=== PATIENT | male | born 1965 | race Caucasian/White ===

== ENCOUNTER 2016-12-18 16:39 | Observation (INO) | payer BC ==
[2016-12-18] MEDS ORDERED: SODIUM CHLORIDE 0.9% 1,000 ML IV STA (17:49)
[2016-12-18 18:13] LABS: Basophils % (A) 0 %; CH 32.1; CHCM 35.8; Eosinophils # (A) 0.2 k/uL (0-0.7); Eosinophils % (A) 1 %; HCT 49.9 % (39.0-53.0); HDW 2.84; HGB 17.5 gm/dL (13.0-17.5); Luc # (Auto) 0.15; Luc % (Auto) 1; Lymphocytes # (A) 2.1 k/uL (1.0-4.8); Lymphocytes % (A) 16 %; MCH 31.5 pg (25.0-35.0); MCV 89.9 fL (80.0-100.0); Mean Platelet Volume 6.4; Monocytes # (A) 0.5 k/uL (0-1.0); Monocytes % (A) 4 %; Neutrophils # (A) 9.7 k/uL (1.3-7.7); Neutrophils % (A) 77 %; RBC 5.55 m/uL (4.30-5.90); RDW 13.3 % (11.5-15.5); WBC 12.6 k/uL (3.8-10.6)
[2016-12-18 18:16] LABS: ALT 30 U/L (21-72); AST 23 U/L (17-59); Alkaline Phosphatase 111 U/L (38-126); Amylase 36 U/L (30-110); Anion Gap 12 mmol/L; Blood Urea Nitrogen 12 mg/dL (9-20); Calcium 9.4 mg/dL (8.4-10.2); Carbon Dioxide 24 mmol/L (22-30); Chloride 105 mmol/L (98-107); Glucose 86 mg/dL (74-99); Non-African American GFR(MDRD) >60 (>60 ml/min/1.73 sqM); Potassium 4.3 mmol/L (3.5-5.1); Sodium 141 mmol/L (137-145); Total Bilirubin 1.2 mg/dL (0.2-1.3)
[2016-12-18 18:31] LABS: Appearance,Urine Clear (Clear); Bilirubin,Urine Negative (Negative); Glucose,Urine (UA) Negative (Negative); Ketones,Urine Negative (Negative); Leukocyte Esterase,Urine Negative (Negative); Nitrite,Urine Negative (Negative); PH, Urine 7.5 (5.0-8.0); Protein,Urine Negative (Negative); Specific Gravity,Urine 1.013 (1.001-1.035); UA Billing (MACRO vs. MICRO) CHEM; Urobilinogen,Urine <2.0 mg/dL (<2.0)
[2016-12-18] MEDS ORDERED: RX INFO: IV CONTRAST WAS GIVEN 1 EACH MISC MISCELLANE PRN (18:34)
--- NOTE | 2016-12-18 19:09 | ED ---
Abdominal Pain HPI - General Chief Complaint: Abdominal Pain Stated Complaint: Abdominal/Side Pain Time Seen by Provider: 12/18/16 17:49 Source: patient, RN notes reviewed Mode of arrival: ambulatory Limitations: no limitations - History of Present Illness Initial Comments: This a 51-year-old male presents emergency Department with chief complaint abdominal pain. Patient states she's had some mild jumping over the last week but states that the last 24 hours she's had severe right lower quadrant abdominal pain. Patient states is very tender when he tries to walk or if he presses in the right lower quadrant. Patient denies any known fever or chills. Patient denies any change in bowel habits she's had some nausea but no vomiting. Patient denies any chest pain or shortness of breath. Patient denies any sick contacts. Patient had a prior hernia surgery but he cannot remember who his surgeon was. - Related Data Previous Rx's Medication Instructions Recorded Aspirin EC [Ecotrin] 325 mg PO DAILY #90 tablet. 12/07/14 Atorvastatin [Lipitor] 40 mg PO DAILY #90 tab 12/07/14 Clopidogrel [Plavix] 75 mg PO DAILY #90 tab 12/07/14 Metoprolol Tartrate [Lopressor] 25 mg PO BID #180 tab 12/07/14 Nitroglycerin Sl Tabs [Nitrostat] 0.4 mg SUBLINGUAL Q5M PRN #25 tab 12/07/14 Allergies Allergy/AdvReac Type Severity Reaction Status Date / Time No Known Allergies Allergy Verified 12/18/16 18:30 Review of Systems ROS Statement: Those systems with pertinent positive or pertinent negative responses have been documented in the HPI. ROS Other: All systems not noted in ROS Statement are negative. Past Medical History Past Medical History: No Reported History History of Any Multi-Drug Resistant Organisms: None Reported Past Surgical History: Heart Catheterization With Stent, Hernia Repair Past Anesthesia/Blood Transfusion Reactions: No Reported Reaction Past Psychological History: No Psychological Hx Reported Smoking Status: Current every day smoker Past Alcohol Use History: Rare Past Drug Use History: None Reported - Past Family History Father Family Medical History: AICD/Pacemaker, Congestive Heart Failure (CHF), Myocardial Infarction ([place]) Additional Family Medical History / Comment(s): Prostate CA General Exam Limitations: no limitations General appearance: alert, in no apparent distress Head exam: Present: atraumatic, normocephalic, normal inspection Respiratory exam: Present: normal lung sounds bilaterally. Absent: respiratory distress, wheezes, rales, rhonchi, stridor Cardiovascular Exam: Present: regular rate, normal rhythm, normal heart sounds. Absent: systolic murmur, diastolic murmur, rubs, gallop, clicks GI/Abdominal exam: Present: soft, tenderness (Moderate right lower quadrant tenderness), normal bowel sounds. Absent: distended, guarding, rebound, rigid Back exam: Absent: CVA tenderness (R), CVA tenderness (L) Skin exam: Present: warm, dry, intact, normal color. Absent: rash Course Vital Signs 12/18/16 12/18/16 17:12 18:56 Temperature 99 F 97.3 F L Pulse Rate 94 78 Respiratory 16 18 Rate Blood Pressure 141/82 138/74 O2 Sat by Pulse 95 96 Oximetry Medical Decision Making - Lab Data Result diagrams: 12/18/16 17:45 12/18/16 17:45 Lab Results 12/18/16 12/18/16 12/18/16 Range/Units 17:45 17:45 17:45 WBC 12.6 H (3.8-10.6) k/uL RBC 5.55 (4.30-5.90) m/uL Hgb 17.5 (13.0-17.5) gm/dL Hct 49.9 (39.0-53.0) % MCV 89.9 (80.0-100.0) fL MCH 31.5 (25.0-35.0) pg MCHC 35.0 (31.0-37.0) g/dL RDW 13.3 (11.5-15.5) % Plt Count 218 (150-450) k/uL Neutrophils % 77 % Lymphocytes % 16 % Monocytes % 4 % Eosinophils % 1 % Basophils % 0 % Neutrophils # 9.7 H (1.3-7.7) k/uL Lymphocytes # 2.1 (1.0-4.8) k/uL Monocytes # 0.5 (0-1.0) k/uL Eosinophils # 0.2 (0-0.7) k/uL Basophils # 0.0 (0-0.2) k/uL Sodium 141 (137-145) mmol/L Potassium 4.3 (3.5-5.1) mmol/L Chloride 105 (98-107) mmol/L Carbon Dioxide 24 (22-30) mmol/L Anion Gap 12 mmol/L BUN 12 (9-20) mg/dL Creatinine 0.82 (0.66-1.25) mg/dL Est GFR (MDRD) Af Amer >60 (>60 ml/min/1.73 sqM) Est GFR (MDRD) Non-Af >60 (>60 ml/min/1.73 sqM) Glucose 86 (74-99) mg/dL Calcium 9.4 (8.4-10.2) mg/dL Total Bilirubin 1.2 (0.2-1.3) mg/dL AST 23 (17-59) U/L ALT 30 (21-72) U/L Alkaline Phosphatase 111 (38-126) U/L Total Protein 7.0 (6.3-8.2) g/dL Albumin 4.3 (3.5-5.0) g/dL Amylase 36 (30-110) U/L Lipase 29 (23-300) U/L Urine Color Yellow Urine Appearance Clear (Clear) Urine pH 7.5 (5.0-8.0) Ur Specific [place] 1.013 (1.001-1.035) Urine Protein Negative (Negative) Urine Glucose (UA) Negative (Negative) Urine Ketones Negative (Negative) Urine Blood Negative (Negative) Urine Nitrate Negative (Negative) Urine Bilirubin Negative (Negative) Urine Urobilinogen <2.0 (<2.0) mg/dL Ur Leukocyte Esterase Negative (Negative) Disposition Clinical Impression: Colitis, Abdominal pain Disposition: ADMITTED IP TO THIS [facility] Condition: Stable
--- NOTE | 2016-12-18 19:15 | CT ---
EXAMINATION TYPE: CT abdomen pelvis w con DATE OF EXAM: 12/18/2016 7:05 PM COMPARISON: NONE HISTORY: Generalized abdominal and chest pain. Nausea. CT DLP: 915.30 mGycm Automated exposure control for dose reduction was used. TECHNIQUE: Helical acquisition of images was performed from the lung bases through the pelvis. CONTRAST: Performed without Oral Contrast and with IV Contrast, patient injected with 100 mL of Omnipaque 300. FINDINGS: Lung bases are clear. There is no pleural effusion. Heart size is normal. Liver spleen pancreas gallbladder appear normal. Bile ducts are not dilated. There is no adrenal mass . Kidneys show satisfactory contrast opacification. There is no hydronephrosis. Ureters are not dilat ed. There is no retroperitoneal adenopathy. There is no ascites. Bladder distends smoothly. There is no sign of a pelvic mass. There is some wall thickening involving the cecum. The appendix appears nor mal. There is no evidence of a bowel obstruction. There are multiple diverticula throughout the colon . There is atherosclerotic calcification in the abdominal aorta and its branches. IMPRESSION: NORMAL APPENDIX. THERE IS MILD WALL THICKENING INVOLVING THE CECUM THAT COULD RELATE TO FOCAL COLITIS . THERE ARE SCATTERED MULTIPLE COLONIC DIVERTICULA WITHOUT EVIDENCE OF DIVERTICULITIS.
[2016-12-18] MEDS ORDERED: NALOXONE 0.4 MG/ML 1 ML VIAL IV PRN (19:40)
[2016-12-18] MEDS ORDERED: LEVOFLOXACIN 750MG-D5W PMX 750 MG in DEXTROSE/WATER 1 150ML.BAG IVPB STA (19:41)
[2016-12-18] MEDS ORDERED: NICOTINE 21MG/24HR PATCH TRANSDERM STA (19:50)
[2016-12-18] MEDS: MORPHINE SULFATE 4 MG/ML SYRINGE IV PRN (20:42)
[2016-12-18 21:17] VITALS: BMI 26.5
[2016-12-18] MEDS: metroNIDAZOLE-NS PMX 500 MG in SALINE 1 100ML.BAG IVPB SCH (22:10)
[2016-12-18] MEDS: METOPROLOL TARTRATE 25 MG TAB PO SCH (22:10)
[2016-12-18] MEDS: SODIUM CHLORIDE 0.9% 1,000 ML IV SCH (22:14)
[2016-12-19] MEDS: MORPHINE SULFATE 4 MG/ML SYRINGE IV PRN (01:24)
[2016-12-19] MEDS: METOPROLOL TARTRATE 25 MG TAB PO SCH ×2 (08:16→19:58)
[2016-12-19] MEDS: NICOTINE 21MG/24HR PATCH TRANSDERM SCH (08:16)
[2016-12-19] MEDS: metroNIDAZOLE-NS PMX 500 MG in SALINE 1 100ML.BAG IVPB SCH ×3 (08:16→23:42)
[2016-12-19] MEDS: ATORVASTATIN 40 MG TAB PO SCH (08:17)
[2016-12-19] MEDS ORDERED: ACETAMINOPHEN TAB 325 MG TAB PO STA (08:44)
[2016-12-19] MEDS: SODIUM CHLORIDE 0.9% 1,000 ML IV SCH ×3 (11:25→23:41)
[2016-12-19] MEDS ORDERED: ACETAMINOPHEN TAB 325 MG TAB PO PRN (11:37)
--- NOTE | 2016-12-19 12:17 | P.CONS ---
History of Present Illness - Reason for Consult Consult date: 12/19/16 Colitis Requesting physician: Adele Hurst - History of Present Illness 51-year-old gentleman patient of Dr. Mcqueen with a past medical history of nicotine cigarette dependency, CAD with PCI stent on aspirin Plavix, and hyperlipidemia. Presents with 2 week history of abdominal pain that initially started on the left side of the abdomen wrapping around the rib cage without diarrhea fever, hematemesis hematochezia or melena. This left-sided abdominal pain subsided but recurred more diffuse across the lower abdomen migrating to the right lower side a few days ago. Again denies diarrhea constipation hematemesis hematochezia melena or fever. No history of this type of pain. No changes in diet, sick contacts, or recent travels. No recent antibiotics. No history of colonoscopy. No history of personal a familial colon cancers. No history of personal or familial inflammatory bowel diseases. CT abdomen and pelvis reported normal appendix with mild wall thickening involving the cecum with no evidence of obstruction. Multiple diverticula seen throughout the colon. White count 12.6. Hemoglobin 17.5. Transaminases, bilirubin, amylase, lipase within normal limits. Urinalysis negative for blood nitrate or leukocyte esterase. Review of Systems Constitutional: Denies fever, chills, sweats, weight gain, or loss. HEENT: Negative for migraines, blurred vision or loss, earaches, drainage, tinnitus, oral mucosal lesions, dysphagia, or odynophagia. Cardiac: CAD with PCI stent. Hyperlipidemia. Negative for chest pain, arrhythmias, or palpitation. Respiratory: Nicotine cigarette dependency. Negative for shortness of breath, hemoptysis, cough, or sputum production. Gastrointestinal: See HPI for pertinent findings. Genitourinary: Negative for hematuria, urgency, frequency, polyuria, dysuria, or penile discharge. Musculoskeletal: Negative for muscle aches, swelling, arthritis, and arthralgias. Neurologic: Negative for stroke or TIA. Endocrine: Negative for thyroid problems. Skin: Negative for rash or itching. Psychiatric: Negative history for depression and anxiety All systems: negative (See HPI) Past Medical History Past Medical History: No Reported History History of Any Multi-Drug Resistant Organisms: None Reported Past Surgical History: Heart Catheterization With Stent, Hernia Repair Past Anesthesia/Blood Transfusion Reactions: No Reported Reaction Date of Last Stent Placement:: 2014 Past Psychological History: No Psychological Hx Reported Smoking Status: Current every day smoker Past Alcohol Use History: Rare Past Drug Use History: None Reported - Past Family History Mother Family Medical History: COPD Father Family Medical History: AICD/Pacemaker, Congestive Heart Failure (CHF), Myocardial Infarction ([place]) Additional Family Medical History / Comment(s): Prostate CA Medications and Allergies Allergies Allergy/AdvReac Type Severity Reaction Status Date / Time No Known Allergies Allergy Verified 12/18/16 18:30 Physical Exam Vitals: Vital Signs Temp Pulse Pulse Resp BP BP Pulse Ox 12/19/16 08:20 97.9 F 74 16 131/70 96 12/19/16 01:05 97.3 F L 68 16 97/61 93 L 12/18/16 22:00 98 F 77 18 117/78 96 12/18/16 20:39 84 16 138/86 95 Intake and Output 12/18/16 12/19/16 12/19/16 22:59 06:59 14:59 Intake Total 1100 600 Balance 1100 600 Intake: IV 1100 Levofloxacin 750Mg-D5w 100 Pmx 750 mg In Dextrose/ Water 1 150ml.bag @ 100 mls/hr IVPB ONCE STA Rx#: [id number] Sodium Chloride 0.9% 1, 900 000 ml @ 100 mls/hr IV . Q10H [facility] Rx#:[id number] metroNIDAZOLE-NS PMX 500 100 mg In Saline 1 100ml.bag @ 100 mls/hr IVPB Q8HR [facility] Rx#:[id number] Oral 600 Other: Voiding Method Toilet # Voids 2 1 Weight 83.915 kg General appearance: The patient is alert, oriented, in no acute distress. HET: Head is normocephalic and atraumatic. Pupils are equal and reactive. Oropharynx is clear without lesions. Neck: Supple without lymphadenopathy. Trachea midline. Heart: S1 S2. Regular rate and rhythm. Lungs: No crackles or wheezes are heard. Abdomen: Soft, mild diffuse tenderness across the bilateral lower abdomen greater than right and left, nondistended with bowel sounds. No peritoneal signs. No palpable organomegaly or masses. Extremities: Normal skin color and turgor. No cyanosis, rash, ulceration, clubbing, or edema. Radial and pedal pulses are 2/4 bilaterally. Neurological: No focal deficits. Strength and sensation are grossly intact. Results CBC & Chem 7: 12/18/16 17:45 12/18/16 17:45 CT scan - abdomen: report reviewed (Reviewed by Dr. Davila) Assessment and Plan (1) Abdominal pain Narrative/Plan: 51-year-old male with a past medical history coronary disease with PCI stent admitted with 2 week history of left-sided abdominal pain now migrating to the bilateral lower quadrants localized to the right lower quadrant with CT imaging consistent with focal cecal colitis with normal appendix without diarrhea fever hematemesis hematochezia or melena. Scattered diverticula seen through the colon consistent with diverticulosis without diverticulitis. Possible inflammatory colitis possible infectious possible subacute diverticulitis. Status: Acute Plan: Plan: 1. Colonoscopy evaluation recommended and scheduled for tomorrow. Continue with empiric antibiotics. Aspirin Plavix on hold. 2. Clear liquid diet. Nothing by mouth after midnight. The spray painter helper has discussed the risks, benefits and alternative therapies for the above-mentioned procedure and for both sedation/analgesia as well as necessary blood product administration, if indicated, as they pertain to this patient. The patient has indicated understanding and acceptance of the risks and procedures discussed. Thank you for this kind referral and the opportunity to participate in the care of your patient. This consultation was discussed with Dr. Davila. The impression and plan of care have been directed as dictated.
[2016-12-19] MEDS ORDERED: PEG 3350-NA SULF,BICARB,CL/KCL 4,000 ML BOTTLE PO ONE (16:00)
[2016-12-19] MEDS: LEVOFLOXACIN 750MG-D5W PMX 750 MG in DEXTROSE/WATER 1 150ML.BAG IVPB SCH (19:59)
[2016-12-19] MEDS: LACTATED RINGERS 1,000 ML IV SCH (22:17)
[2016-12-20] MEDS: MORPHINE SULFATE 4 MG/ML SYRINGE IV PRN (01:08)
[2016-12-20 02:39] VITALS: RESP 16
[2016-12-20] MEDS: metroNIDAZOLE-NS PMX 500 MG in SALINE 1 100ML.BAG IVPB SCH ×3 (08:43→23:34)
[2016-12-20] MEDS: METOPROLOL TARTRATE 25 MG TAB PO SCH ×2 (08:53→20:09)
[2016-12-20] MEDS: NICOTINE 21MG/24HR PATCH TRANSDERM SCH (08:53)
[2016-12-20] MEDS: ATORVASTATIN 40 MG TAB PO SCH (08:53)
[2016-12-20] MEDS: SODIUM CHLORIDE 0.9% 1,000 ML IV SCH ×2 (08:53→21:00)
[2016-12-20] MEDS ORDERED: NITROGLYCERIN SL TABS 0.4 MG TAB SUBLINGUAL PRN (11:05)
[2016-12-20] MEDS: HEPARIN SODIUM,PORCINE 5,000 UNIT/ML 1 ML VIAL SQ SCH ×2 (11:28→20:09)
[2016-12-20] MEDS: ONDANSETRON 4 MG/2 ML VIAL IVP PRN ×2 (11:29→20:16)
--- NOTE | 2016-12-20 11:52 | HP ---
DATE OF ADMISSION: The chief complaint is abdominal pain. HISTORY OF PRESENT ILLNESS: This 51-year-old gentleman with a past medical history of CAD, stent, history of hernia repair, history of nicotine dependence, being followed by Dr. Kieran Mcqueen in the outpatient setting was complaining of abdominal pain. The patient initially had pain in left groin radiating to the left lower part of the abdomen, subsequently the patient had severe right lower quadrant abdominal pain, which was radiating to both sides and patient did not have any diarrhea. The pain was while moving, movement. The patient came to [facility], admitted for further evaluation and white count is elevated at 12.6 and a CAT scan of the abdomen and pelvis was done, which showed possible wall thickening involving the cecum, could be related to colitis and multiple colonic diverticula without any evidence of diverticulitis and Gastroenterology has seen the patient for possible endoscopies at this time. There is no history of any fever, rigors or chills. No history of headache, loss of consciousness or seizures. PAST MEDICAL HISTORY: History of CAD, stent, history of hernia repair, history of nicotine dependence. Medications prior to admission include: 1. Nitro 0.4 sublingual p.r.n. 2. Lopressor 25 mg p.o. b.i.d. 3. Plavix 75 mg p.o. daily. 4. Lipitor 40 mg p.o. daily. 5. Ecotrin 325 mg p.o. daily. Allergies are none. FAMILY HISTORY: History of CHF and myocardial infarction, AICD and prostate cancer in the family. SOCIAL HISTORY: History of current smoking. Occasional alcohol intake. REVIEW OF SYSTEMS: ENT: No diminished vision. No diminished hearing. CARDIOVASCULAR SYSTEM: As mentioned earlier. RESPIRATORY: No cough or hemoptysis. GI: mentioned earlier. : No dysuria. NERVOUS SYSTEM: No numbness or weakness. ALLERGY/IMMUNOLOGY: No asthma or hayfever. MUSCULOSKELETAL: As mentioned earlier. HEMATOLOGY: No history of anemia. ENDOCRINE: No history of diabetes or hypothyroidism. CONSTITUTIONAL: As mentioned earlier. DERMATOLOGY: Negative. RHEUMATOLOGY: Negative. PSYCHIATRY: As mentioned earlier. PHYSICAL EXAM: Patient is alert and oriented x3. Pulse is 61, blood pressure 127/75, respiratory rate is 16, temperature 97.2, pulse ox 92% on room air. HEENT: Conjunctivae normal, oral mucosa moist. Neck is no jugular venous distension. No carotid bruit, no lymph node enlargement. CARDIOVASCULAR: S1, S2, muffled. No S3, no S4. RESPIRATORY: Breath sounds diminished at the bases. No rhonchi, no crackles. Abdomen is soft. Mild diffuse discomfort, especially in the lower part, no guarding. No mass palpable. No ascites. EXTREMITIES: Legs no edema, no swelling. NERVOUS SYSTEM: Higher functions as mentioned. Moves all 4 limbs. No focal motor or sensory deficits. LYMPHATICS: No lymph node enlargement from the neck, axillae or groin. SKIN: No ulcers, rash or bleeding. LABS: WBC is 12.6, hemoglobin 17.5. CMP within normal limits. ASSESSMENT: 1. Lower abdominal pain, possibly colitis involving the cecum. 2. Multiple diverticulosis without any evidence of diverticulitis. 3. History of coronary artery disease, stent. 4. History of hernia repair. 5. History of nicotine dependence. 6. FULL CODE. RECOMMENDATION AND DISCUSSION: In this 51-year-old gentleman who presented with multiple complex medical issues, will monitor the patient closely. Continue with the current medication and symptomatic treatment. Patient is on started on empiric antibiotics for presumed colitis or Levaquin and Flagyl. Otherwise, will continue to monitor. Possible endoscopies by Dr. Davila. Smoking cessation. DVT prophylaxis. Guarded prognosis because of the multiple complex medical issues. The medications reconciliation was done. The patient will be started on antiplatelet agents after the colonoscopy. Otherwise prognosis is guarded because of multiple complex medical issues. Further recommendations to follow. A copy of this will be forwarded to Dr. Kieran Mcqueen who is the primary physician. IMELDA
[2016-12-20] MEDS ORDERED: PROPOFOL 10 MG/ML 20 ML VIAL IV ONE (13:45)
[2016-12-20] MEDS ORDERED: IV FLUID CONTINUATION 700 ML IV ONE (13:50)
--- NOTE | 2016-12-20 14:05 | P.PCN ---
Date of Procedure: 12/20/16 Procedure(s) Performed: BRIEF HISTORY: Patient is a 51-year-old pleasant white male, scheduled for an elective colonoscopy as a part of the lesion of lower abdominal pain for the last 2 weeks' duration. He had a CT of the abdomen and pelvis done that showed thickening of the cecum suggestive of focal acute colitis and hence he scheduled for a colonoscopy to evaluate further. PROCEDURE PERFORMED: Colonoscopy. PREOPERATIVE DIAGNOSIS: Lower abdominal pain of 2 weeks duration. IV sedation per Anesthesia. PROCEDURE: After informed consent was obtained, the patient, was brought into the endoscopy unit. IV conscious sedation was administered by Anesthesia under continuous monitoring. External rectal examination was normal. Initially the Olympus CF-160 flexible video colonoscope was then inserted in the rectum, gradually advanced into the cecum without any difficulty. Careful examination was performed as the scope was gradually being withdrawn. Ileocecal valve and the appendiceal orifice were visualized and appeared normal. Prep was excellent. Mucosa of the cecum, ascending colon, transverse colon, descending colon, sigmoid colon, and rectum appeared normal. Scattered left sided diverticulosis seen. Retroflexion was performed in the rectum and no lesions were seen. The patient tolerated the procedure well. IMPRESSION: Normal-appearing colon from rectum to cecum with no evidence of colitis or colorectal neoplasia. Scattered sigmoid diverticulosis. RECOMMENDATIONS: Findings of this examination were discussed with the patient . He'll be started on a regular diet and can be discharged home today with outpatient follow-up in one to 2 weeks..
[2016-12-20] MEDS: LEVOFLOXACIN 750MG-D5W PMX 750 MG in DEXTROSE/WATER 1 150ML.BAG IVPB SCH (20:09)
[2016-12-20] MEDS: LACTATED RINGERS 1,000 ML IV SCH (22:04)
[2016-12-21 07:18] LABS: Basophils % (A) 0 %; CH 31.7; CHCM 34.6; Eosinophils # (A) 0.2 k/uL (0-0.7); Eosinophils % (A) 2 %; HCT 47.3 % (39.0-53.0); HDW 2.87; HGB 15.8 gm/dL (13.0-17.5); Luc # (Auto) 0.16; Luc % (Auto) 2; Lymphocytes # (A) 1.4 k/uL (1.0-4.8); Lymphocytes % (A) 22 %; MCH 30.7 pg (25.0-35.0); MCHC 33.4 g/dL (31.0-37.0); MCV 91.8 fL (80.0-100.0); Mean Platelet Volume 6.8; Monocytes # (A) 0.3 k/uL (0-1.0); Monocytes % (A) 5 %; Neutrophils # (A) 4.6 k/uL (1.3-7.7); Neutrophils % (A) 69 %; RBC 5.15 m/uL (4.30-5.90); RDW 13.2 % (11.5-15.5); WBC 6.6 k/uL (3.8-10.6); WBC (Perox) 6.52
[2016-12-21 07:27] VITALS: BP 108/66; PULSE 67; TEMP 97.7
[2016-12-21 07:47] LABS: Anion Gap 9 mmol/L; Blood Urea Nitrogen 12 mg/dL (9-20); Calcium 8.6 mg/dL (8.4-10.2); Carbon Dioxide 22 mmol/L (22-30); Chloride 108 mmol/L (98-107); Glucose 85 mg/dL (74-99); Non-African American GFR(MDRD) >60 (>60 ml/min/1.73 sqM); Potassium 4.4 mmol/L (3.5-5.1); Sodium 139 mmol/L (137-145)
[2016-12-21] MEDS: SODIUM CHLORIDE 0.9% 1,000 ML IV SCH (08:59)
[2016-12-21] MEDS: ATORVASTATIN 40 MG TAB PO SCH (09:00)
[2016-12-21] MEDS: METOPROLOL TARTRATE 25 MG TAB PO SCH (09:00)
[2016-12-21] MEDS: NICOTINE 21MG/24HR PATCH TRANSDERM SCH (09:00)
[2016-12-21] MEDS: metroNIDAZOLE-NS PMX 500 MG in SALINE 1 100ML.BAG IVPB SCH (09:00)
[2016-12-21] MEDS: HEPARIN SODIUM,PORCINE 5,000 UNIT/ML 1 ML VIAL SQ SCH (09:00)
--- NOTE | 2016-12-22 09:03 | DS ---
DATE OF ADMISSION: 12/18/2016 DATE OF DISCHARGE: 12/21/2016 FINAL DIAGNOSES: 1. Lower abdominal pain possibly colitis involving the cecum, improved. 2. Multiple diverticulosis without any evidence of diverticulitis on the CAT scan. 3. History of coronary artery disease, stent. 4. History of hernia repair. 5. History of nicotine dependence. 6. FULL CODE. DISCHARGE DISPOSITION: The patient will be discharged in stable condition with guarded prognosis. HISTORY OF PRESENT ILLNESS: This 51-year-old gentleman with a past medical history of multiple medical problems admitted with lower abdominal pain, colitis was suspected clinically. However, the colonoscopy did not show any acute abnormality however. ON EXAM: Currently the patient's vitals are stable. CARDIOVASCULAR SYSTEM: S1, S2 muffled. ABDOMEN: Soft. NERVOUS SYSTEM: No focal deficits. The patient clinically improved with empiric antibiotics and the white count was also elevated on admission 12.6. So clinically the colitis is being strongly suspected. So the patient will be discharged in stable condition with guarded prognosis. Diet is soft, low residue. Activity limited until followup. Follow up with Dr. Mcqueen in 2 to 3 days. Follow up with Dr. Davila as advised. The medications are: 1. Ecotrin 325 mg p.o. daily. 2. Lipitor 40 mg p.o. daily. 3. Cipro 500 mg b.i.d. for 2 days. 4. Plavix 75 mg p.o. daily. 5. Lopressor 25 mg p.o. b.i.d. 6. Habitrol 21 daily. 7. Nitrostat 0.4 sublingual p.r.n. 8. Flagyl 500 mg p.o. q.8 for 2 days. Once again, the patient will be discharged in a stable condition with a guarded prognosis.
== END 2016-12-21 10:42 | disposition home or self-care (01) ==
LOC: EC 16:39 → INTOOBSV 19:39 → 3SUR 19:39
PROVIDERS: ADMIT Internal Medicine; ATTEND Internal Medicine
PROC: 0DJD8ZZ Inspection of Lower Intestinal Tract, Via Natural or Artificial Opening Endoscopic (ICD-10-PCS; principal; 2016-12-20 11:50)
DX: R10.32 Left lower quadrant pain (principal); R10.31 Right lower quadrant pain; K57.30 Diverticulosis of large intestine without perforation or abscess without bleeding; E78.5 Hyperlipidemia, unspecified; F17.200 Nicotine dependence, unspecified, uncomplicated; I25.10 Atherosclerotic heart disease of native coronary artery without angina pectoris; Z79.02 Long term (current) use of antithrombotics/antiplatelets; Z79.82 Long term (current) use of aspirin; Z79.899 Other long term (current) drug therapy; Z95.5 Presence of coronary angioplasty implant and graft; Z82.49 Family history of ischemic heart disease and other diseases of the circulatory system
CPT/HCPCS: 96376; 96361; 96365; 96375; 99285; 36415; 93005; 80053; 80048; 82150; 83690; 85025 ×2; 81003; 74177; G0378 ×4; S4990 ×4; J2270 ×3; J1644 ×2; J2405; J1956 ×3; Q9967; J2704; G0121; 96366; 96367; 99153

== ENCOUNTER 2017-10-25 07:22 | Observation (INO) | payer BC ==
[2017-10-25 08:16] LABS: Basophils % (A) 0 %; Eosinophils # (A) 0.2 k/uL (0-0.7); Eosinophils % (A) 1 %; HCT 49.2 % (39.0-53.0); HGB 16.6 gm/dL (13.0-17.5); Lymphocytes # (A) 1.7 k/uL (1.0-4.8); Lymphocytes % (A) 13 %; MCH 31.1 pg (25.0-35.0); MCHC 33.8 g/dL (31.0-37.0); MCV 91.9 fL (80.0-100.0); Mean Platelet Volume 7.5; Monocytes # (A) 0.6 k/uL (0-1.0); Monocytes % (A) 4 %; Neutrophils # (A) 10.4 k/uL (1.3-7.7); Neutrophils % (A) 80 %; Platelet Count 257 k/uL (150-450); RBC 5.35 m/uL (4.30-5.90); RDW 14.6 % (11.5-15.5); WBC 13.1 k/uL (3.8-10.6)
[2017-10-25 08:27] LABS: ALT 27 U/L (21-72); AST 21 U/L (17-59); Alkaline Phosphatase 90 U/L (38-126); Anion Gap 10 mmol/L; Blood Urea Nitrogen 21 mg/dL (9-20); Calcium 9.8 mg/dL (8.4-10.2); Carbon Dioxide 22 mmol/L (22-30); Chloride 107 mmol/L (98-107); Glucose 123 mg/dL (74-99); INR 1.2 (<1.2); Magnesium 2.1 mg/dL (1.6-2.3); Partial Thromboplastin Time 24.2 sec (22.0-30.0); Potassium 4.8 mmol/L (3.5-5.1); Prothrombin Time 11.3 sec (9.0-12.0); Sodium 139 mmol/L (137-145); Total Protein 6.6 g/dL (6.3-8.2)
--- NOTE | 2017-10-25 08:59 | ED ---
General Adult HPI - General Chief complaint: GI Bleed Stated complaint: Blood in Stool Time Seen by Provider: 10/25/17 07:25 Source: patient, RN notes reviewed Mode of arrival: ambulatory Limitations: no limitations - History of Present Illness Initial comments: This is a 52-year-old male who presents to the emergency department complaining of having gross red blood per rectum. Patient states he on it more than one occasion this morning he has had quite a bit of blood enough to fill the toilet. Patient states prior to having bright red blood he does have some abdominal cramping and then he has the urge to go to the bathroom and when he goes to the bathroom all he has is bright red blood. Patient denies any rectal pain. Patient denies any abdominal pain. Patient states she's never had any history of this before. Patient states she takes aspirin but no other medications. Patient denies any palpitations or shortness of breath per patient denies lightheadedness or dizziness. - Related Data Home Medications Medication Instructions Recorded Confirmed Metoprolol Tartrate [Lopressor] 25 mg PO HS 10/25/17 10/25/17 Previous Rx's Medication Instructions Recorded Aspirin EC [Ecotrin] 325 mg PO DAILY #90 tablet. 12/07/14 Atorvastatin [Lipitor] 40 mg PO DAILY #90 tab 12/07/14 Nitroglycerin Sl Tabs [Nitrostat] 0.4 mg SUBLINGUAL Q5M PRN #25 tab 12/07/14 Nicotine 21Mg/24Hr Patch [Habitrol] 1 patch TRANSDERM DAILY #30 patch 12/21/16 Allergies Allergy/AdvReac Type Severity Reaction Status Date / Time No Known Allergies Allergy Verified 10/25/17 07:30 Review of Systems ROS Statement: Those systems with pertinent positive or pertinent negative responses have been documented in the HPI. ROS Other: All systems not noted in ROS Statement are negative. Past Medical History Past Medical History: Hyperlipidemia, Hypertension History of Any Multi-Drug Resistant Organisms: None Reported Past Surgical History: Heart Catheterization With Stent, Hernia Repair Past Anesthesia/Blood Transfusion Reactions: No Reported Reaction Date of Last Stent Placement:: 2014 Past Psychological History: No Psychological Hx Reported Smoking Status: Current every day smoker Past Alcohol Use History: Rare Past Drug Use History: None Reported - Past Family History Mother Family Medical History: COPD Father Family Medical History: AICD/Pacemaker, Congestive Heart Failure (CHF), Myocardial Infarction ([place]) Additional Family Medical History / Comment(s): Prostate CA General Exam - General Exam Comments Initial Comments: GENERAL: Patient is well-developed and well-nourished. Patient is nontoxic and well- hydrated and is in mild distress. ENT: Neck is soft and supple. No significant lymphadenopathy is noted. Oropharynx is clear. Moist mucous membranes. Neck has full range of motion without eliciting any pain. EYES: The sclera were anicteric and conjunctiva were pink and moist. Extraocular movements were intact and pupils were equal round and reactive to light. Eyelids were unremarkable. PULMONARY: Unlabored respirations. Good breath sounds bilaterally. No audible rales rhonchi or wheezing was noted. CARDIOVASCULAR:Femoral pulses are equal bilaterally ABDOMEN: Soft and nontender with normal bowel sounds. No palpable organomegaly was noted. There is no palpable pulsatile mass. SKIN: Skin is clear with no lesions or rashes and otherwise unremarkable. NEUROLOGIC: Patient is alert and oriented x3. Cranial nerves II through XII are grossly intact. Motor and sensory are also intact. Normal speech, volume and content. Symmetrical smile. MUSCULOSKELETAL: Normal extremities with adequate strength and full range of motion. LYMPHATICS: No significant lymphadenopathy is noted PSYCHIATRIC: Normal psychiatric evaluation. Limitations: no limitations Course Vital Signs 10/25/17 10/25/17 10/25/17 07:25 07:59 08:59 Temperature 97.3 F L Pulse Rate 85 67 76 Respiratory 16 17 17 Rate Blood Pressure 106/79 119/75 111/63 O2 Sat by Pulse 96 98 98 Oximetry Medical Decision Making - Medical Decision Making I spoke with Dr. Richard Ramos agreed to admit the patient admitted the patient wrote admitting orders. - Lab Data Result diagrams: 10/25/17 07:50 10/25/17 07:50 Lab Results 10/25/17 10/25/17 10/25/17 Range/Units 07:50 07:50 07:50 WBC 13.1 H (3.8-10.6) k/uL RBC 5.35 (4.30-5.90) m/uL Hgb 16.6 (13.0-17.5) gm/dL Hct 49.2 (39.0-53.0) % MCV 91.9 (80.0-100.0) fL MCH 31.1 (25.0-35.0) pg MCHC 33.8 (31.0-37.0) g/dL RDW 14.6 (11.5-15.5) % Plt Count 257 (150-450) k/uL Neutrophils % 80 % Lymphocytes % 13 % Monocytes % 4 % Eosinophils % 1 % Basophils % 0 % Neutrophils # 10.4 H (1.3-7.7) k/uL Lymphocytes # 1.7 (1.0-4.8) k/uL Monocytes # 0.6 (0-1.0) k/uL Eosinophils # 0.2 (0-0.7) k/uL Basophils # 0.0 (0-0.2) k/uL PT 11.3 (9.0-12.0) sec INR 1.2 H (<1.2) APTT 24.2 (22.0-30.0) sec Sodium 139 (137-145) mmol/L Potassium 4.8 (3.5-5.1) mmol/L Chloride 107 (98-107) mmol/L Carbon Dioxide 22 (22-30) mmol/L Anion Gap 10 mmol/L BUN 21 H (9-20) mg/dL Creatinine 0.91 (0.66-1.25) mg/dL Est GFR (MDRD) Af Amer >60 (>60 ml/min/1.73 sqM) Est GFR (MDRD) Non-Af >60 (>60 ml/min/1.73 sqM) Glucose 123 H (74-99) mg/dL Calcium 9.8 (8.4-10.2) mg/dL Magnesium 2.1 (1.6-2.3) mg/dL Total Bilirubin 1.0 (0.2-1.3) mg/dL AST 21 (17-59) U/L ALT 27 (21-72) U/L Alkaline Phosphatase 90 (38-126) U/L Total Protein 6.6 (6.3-8.2) g/dL Albumin 4.0 (3.5-5.0) g/dL Disposition Clinical Impression: Gastrointestinal hemorrhage Disposition[facility] Referrals: Kieran Mcqueen MD [Primary Care Provider] - 1-2 days Time of Disposition: 08:59
[2017-10-25] MEDS ORDERED: SODIUM CHLORIDE 0.9% 1,000 ML IV ONE (09:00)
[2017-10-25 09:25] LABS: Basophils % (A) 0 %; Eosinophils # (A) 0.1 k/uL (0-0.7); Eosinophils % (A) 1 %; HCT 47.7 % (39.0-53.0); Lymphocytes # (A) 1.7 k/uL (1.0-4.8); Lymphocytes % (A) 12 %; MCH 31.6 pg (25.0-35.0); MCHC 33.6 g/dL (31.0-37.0); Mean Platelet Volume 7.5; Monocytes # (A) 0.6 k/uL (0-1.0); Monocytes % (A) 5 %; Neutrophils # (A) 11.1 k/uL (1.3-7.7); Neutrophils % (A) 81 %; Platelet Count 223 k/uL (150-450); RBC 5.07 m/uL (4.30-5.90); RDW 15.1 % (11.5-15.5); WBC 13.7 k/uL (3.8-10.6)
[2017-10-25 10:41] LABS: Glucose,Whole Blood 105 mg/dL (75-99)
[2017-10-25] MEDS ORDERED: NALOXONE 0.4 MG/ML 1 ML VIAL IV PRN (11:11)
[2017-10-25] MEDS ORDERED: PANTOPRAZOLE 40 MG/10 ML VIAL IV SCH (11:15)
[2017-10-25] MEDS ORDERED: NICOTINE 14MG/24HR PATCH TRANSDERM SCH (12:00)
--- NOTE | 2017-10-25 12:08 | P.CONS ---
History of Present Illness - Reason for Consult Consult date: 10/25/17 GI bleed Requesting physician: Yisel Ramos - History of Present Illness 52-year-old male admitted with acute onset of cramping lower abdominal pain with bright red blood per rectum last night. Patient passed about 5 grossly bloody diarrhea bowel movements. Colonoscopy December 2016 scattered sigmoid diverticulosis no evidence of colitis or colorectal neoplasia. Denies hematemesis melena or epigastric pain. Hemoglobin 16-16.6. White count 13.7. INR 1.2. BUN 21 creatinine 0.9. Presently resting more comfortably with minimal abdominal discomfort. Last bowel movement earlier this morning smaller in quantity. Review of Systems Constitutional: Denies fever, chills, sweats, weight gain, or loss. HEENT: Negative for migraines, blurred vision or loss, earaches, drainage, tinnitus, oral mucosal lesions, dysphagia, or odynophagia. Cardiac: CAD. [place]. PCI stent. Negative for chest pain, arrhythmias, or palpitation. Respiratory: Nicotine cigarette dependency. Negative for shortness of breath, hemoptysis, cough, or sputum production. Gastrointestinal: See HPI for pertinent findings. Genitourinary: Negative for hematuria, urgency, frequency, polyuria, dysuria, or penile discharge. Musculoskeletal: Negative for muscle aches, swelling, arthritis, and arthralgias. Neurologic: Negative for stroke or TIA. Endocrine: Negative for thyroid problems. Skin: Negative for rash or itching. Psychiatric: Negative history for depression and anxiety Past Medical History Past Medical History: Asthma, Coronary Artery Disease (CAD), Myocardial Infarction ([place]) Additional Past Medical History / Comment(s): Pt states he does not have HTN or elevated cholesterol-he is these type medications d/t his cardiac stent, he has low back pain. Last Myocardial Infarction Date:: 2014 History of Any Multi-Drug Resistant Organisms: None Reported Past Surgical History: Heart Catheterization With Stent, Hernia Repair Additional Past Surgical History / Comment(s): 12/20/16 colonoscopy, L inguinal hernia repair, inguinal hernia repair as a child too. Past Anesthesia/Blood Transfusion Reactions: No Reported Reaction Date of Last Stent Placement:: 2014 Past Psychological History: No Psychological Hx Reported Additional Psychological History / Comment(s): Pt resides with his significant other. He is independent. 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 Smoking Status: Current every day smoker Past Alcohol Use History: Rare Past Drug Use History: None Reported - Past Family History Mother Family Medical History: COPD Additional Family Medical History / Comment(s): Mother is . Father Family Medical History: AICD/Pacemaker, Congestive Heart Failure (CHF), Myocardial Infarction ([place]) Additional Family Medical History / Comment(s): Prostate CA, father had 1st of 3 MIs at the age of 61 yrs. Medications and Allergies Home Medications Medication Instructions Recorded Confirmed Type Aspirin EC [Ecotrin] 325 mg PO DAILY #90 tablet.dr 12/07/14 10/25/17 Rx Atorvastatin [Lipitor] 40 mg PO DAILY #90 tab 12/07/14 10/25/17 Rx Nitroglycerin Sl Tabs [Nitrostat] 0.4 mg SUBLINGUAL Q5M PRN #25 tab 12/07/14 Rx Nicotine 21Mg/24Hr Patch [Habitrol] 1 patch TRANSDERM DAILY #30 patch 12/21/16 10/25/17 Rx Metoprolol Tartrate [Lopressor] 25 mg PO HS 10/25/17 10/25/17 History Allergies Allergy/AdvReac Type Severity Reaction Status Date / Time No Known Allergies Allergy Verified 10/25/17 07:30 Physical Exam Vitals: Vital Signs Temp Pulse Resp BP Pulse Ox 10/25/17 11:00 73 23 118/76 96 10/25/17 10:50 69 22 118/76 98 10/25/17 10:41 97.4 F L 74 17 110/70 98 10/25/17 10:40 75 21 118/76 97 10/25/17 08:59 76 17 111/63 98 10/25/17 07:59 67 17 119/75 98 10/25/17 07:25 97.3 F L 85 16 106/79 96 Intake and Output 10/24/17 10/25/17 10/25/17 22:59 06:59 14:59 Intake Total 75 Balance 75 Intake: IV 75 Sodium Chloride 0.9% 1, 75 000 ml @ 75 mls/hr IV . [id number] ONE Rx#:[id number] Other: Weight 89.358 kg Patient Weight 10/26/17 06:59 Weight 89.358 kg General appearance: The patient is alert, oriented, in no acute distress. HET: Head is normocephalic and atraumatic. Pupils are equal and reactive. Oropharynx is clear without lesions. Neck: Supple without lymphadenopathy. Trachea midline. Heart: S1 S2. Regular rate and rhythm. Lungs: No crackles or wheezes are heard. Abdomen: Soft, mild tenderness bilateral lower abdomen greater than left, nondistended with bowel sounds. No peritoneal signs. No palpable organomegaly or masses. Extremities: Normal skin color and turgor. No cyanosis, rash, ulceration, clubbing, or edema. Radial and pedal pulses are 2/4 bilaterally. Neurological: No focal deficits. Strength and sensation are grossly intact. Results CBC & Chem 7: 10/25/17 15:36 10/25/17 07:50 Labs: Abnormal Lab Results - Last 24 Hours (Table) 10/25/17 10/25/17 10/25/17 Range/Units 07:50 07:50 07:50 WBC 13.1 H (3.8-10.6) k/uL Neutrophils # 10.4 H (1.3-7.7) k/uL INR 1.2 H (<1.2) BUN 21 H (9-20) mg/dL Glucose 123 H (74-99) mg/dL POC Glucose (mg/dL) (75-99) mg/dL 10/25/17 10/25/17 Range/Units 09:06 10:39 WBC 13.7 H (3.8-10.6) k/uL Neutrophils # 11.1 H (1.3-7.7) k/uL INR (<1.2) BUN (9-20) mg/dL Glucose (74-99) mg/dL POC Glucose (mg/dL) 105 H (75-99) mg/dL Assessment and Plan (1) Gastrointestinal hemorrhage Narrative/Plan: Hematochezia with lower abdominal cramping suspect ischemic colitis possible superimposed diverticular bleed possible combination of both. Current Visit: Yes Status: Acute Code(s): K92.2 - GASTROINTESTINAL HEMORRHAGE, UNSPECIFIED SNOMED Code(s): 54800220 Plan: 1. IV hydration. 2. Nothing by mouth except medications ice chips popsicles. 3. CBC monitoring. 4. GI prophylaxis. 5. Endoscopic exams not planned at this time but contingent on clinical course. Thank you for this kind referral and the opportunity to participate in the care of your patient. This consultation was discussed with Dr. Davila. The impression and plan of care have been directed as dictated.
--- NOTE | 2017-10-25 12:27 | P.CNPUL ---
History of Present Illness Consult date: 10/25/17 Requesting physician: Yisel Ramos Reason for consult: other Chief complaint: Dark and bright red GI bleeding per rectum History of present illness: Nu 52-year-old white male patient presented to the emergency department on 02/23/2017 at 7:00 in the morning with complaints of acute onset GI bleeding this morning of dark and bright red blood per rectum. He stated this morning he started having some cramping, went to the bathroom and passed large amount of loose bowel movement that he noted was dark and bright red in color. 10 minutes later he had another large bright red bowel movement. His stated he looked very pale. At that time he decided to go to the emergency room for evaluation. Have another episode of a large bright red colored stool in the emergency room. At that time started feeling a little lightheaded and weak. Has a past medical history artery artery disease with stenting, is currently on aspirin, had previously been on Plavix but then had been discontinued a while ago. Other medical history include hypertension, hyperlipidemia, current every day smoker, carries [id number] smoking history. He had a colonoscopy in December [address] Davila which showed sigmoid diverticulosis. Denies hematemesis, melena or epigastric pain. His hemoglobin on admission was 16.6, white count of 13.1, INR 1.2, with PT of 11.3, BUN of 21, creatinine 0.91. Patient has been afebrile, hemodynamically stable, currently on 2 L per nasal cannula with O2 sat 97%. Denies any shortness of breath, does feel a little weak. Of note patient was treated with Rocephin and Zithromax for upper respiratory infection and bronchitis couple weeks ago, still has some residual chest congestion. His abdomen is soft and nontender, does have some mild cramping in the lower quadrants. Patient was started on IV fluids of 0.9 at 75 ML per hour, Protonix IV push daily. On serial H&H's, GI service has been consulted and their input was appreciated. Review of Systems All systems: negative Constitutional: Denies chills, Denies fever Eyes: denies blurred vision, denies pain Ears, nose, mouth and throat: Denies headache, Denies sore throat Cardiovascular: Denies chest pain, Denies shortness of breath Respiratory: Denies cough Gastrointestinal: Denies abdominal pain, Denies diarrhea, Denies nausea, Denies vomiting Musculoskeletal: Denies myalgias Integumentary: Denies pruritus, Denies rash Neurological: Denies numbness, Denies weakness Psychiatric: Denies anxiety, Denies depression Endocrine: Denies fatigue, Denies weight change Past Medical History Past Medical History: Asthma, Coronary Artery Disease (CAD), Myocardial Infarction ([place]) Additional Past Medical History / Comment(s): Pt states he does not have HTN or elevated cholesterol-he is these type medications d/t his cardiac stent, he has low back pain. Last Myocardial Infarction Date:: 2014 History of Any Multi-Drug Resistant Organisms: None Reported Past Surgical History: Heart Catheterization With Stent, Hernia Repair Additional Past Surgical History / Comment(s): 12/20/16 colonoscopy, L inguinal hernia repair, inguinal hernia repair as a child too. Past Anesthesia/Blood Transfusion Reactions: No Reported Reaction Date of Last Stent Placement:: 2014 Past Psychological History: No Psychological Hx Reported Additional Psychological History / Comment(s): Pt resides with his significant other. He is independent. 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 Smoking Status: Current every day smoker Past Alcohol Use History: Rare Past Drug Use History: None Reported - Past Family History Mother Family Medical History: COPD Additional Family Medical History / Comment(s): Mother is . Father Family Medical History: AICD/Pacemaker, Congestive Heart Failure (CHF), Myocardial Infarction ([place]) Additional Family Medical History / Comment(s): Prostate CA, father had 1st of 3 MIs at the age of 61 yrs. Medications and Allergies Home Medications Medication Instructions Recorded Confirmed Type Aspirin EC [Ecotrin] 325 mg PO DAILY #90 tablet. 12/07/14 10/25/17 Rx Atorvastatin [Lipitor] 40 mg PO DAILY #90 tab 12/07/14 10/25/17 Rx Nitroglycerin Sl Tabs [Nitrostat] 0.4 mg SUBLINGUAL Q5M PRN #25 tab 12/07/14 Rx Nicotine 21Mg/24Hr Patch [Habitrol] 1 patch TRANSDERM DAILY #30 patch 12/21/16 10/25/17 Rx Metoprolol Tartrate [Lopressor] 25 mg PO HS 10/25/17 10/25/17 History Allergies Allergy/AdvReac Type Severity Reaction Status Date / Time No Known Allergies Allergy Verified 10/25/17 07:30 Physical Exam Vitals: Vital Signs Temp Pulse Resp BP Pulse Ox 10/25/17 11:00 73 23 118/76 96 10/25/17 10:50 69 22 118/76 98 10/25/17 10:41 97.4 F L 74 17 110/70 98 10/25/17 10:40 75 21 118/76 97 10/25/17 08:59 76 17 111/63 98 10/25/17 07:59 67 17 119/75 98 10/25/17 07:25 97.3 F L 85 16 106/79 96 Intake and Output 10/24/17 10/25/17 10/25/17 22:59 06:59 14:59 Intake Total 75 Balance 75 Intake: IV 75 Sodium Chloride 0.9% 1, 75 000 ml @ 75 mls/hr IV . [id number] ONE Rx#:[id number] Other: Weight 89.358 kg Patient Weight 10/26/17 06:59 Weight 89.358 kg GENERAL EXAM: Alert, 52-year-old white male, comfortable in no apparent distress. HEAD: Normocephalic/atraumatic. EYES: Normal reaction of pupils, equal size. Conjunctiva pink, sclera white. NOSE: Clear with pink turbinates. THROAT: No erythema or exudates. NECK: No masses, no JVD, no thyroid enlargement, no adenopathy. CHEST: No chest wall deformity. Symmetrical expansion. LUNGS: Equal air entry with no crackles, wheeze, rhonchi or dullness. CVS: Regular rate and rhythm, normal S1 and S2, no gallops, no murmurs, no rubs ABDOMEN: Soft, nontender. No hepatosplenomegaly, normal bowel sounds, no guarding or rigidity. EXTREMITIES: No clubbing, no edema, no cyanosis, 2+ pulses and upper and lower extremities. MUSCULOSKELETAL: Muscle strength and tone normal. SPINE: No scoliosis or deformity SKIN: No rashes CENTRAL NERVOUS SYSTEM: Alert and oriented -3. No focal deficits, tone is normal in all 4 extremities. PSYCHIATRIC: Alert and oriented -3. Appropriate affect. Intact judgment and insight. Results - Laboratory Findings CBC and BMP: 10/25/17 09:06 10/25/17 07:50 PT/INR, D-dimer PT 11.3 sec (9.0-12.0) 10/25/17 07:50 INR 1.2 (<1.2) H 10/25/17 07:50 Abnormal lab findings: Abnormal Labs 10/25/17 10/25/17 10/25/17 07:50 07:50 07:50 WBC 13.1 H Neutrophils # 10.4 H INR 1.2 H BUN 21 H Glucose 123 H POC Glucose (mg/dL) 10/25/17 10/25/17 09:06 10:39 WBC 13.7 H Neutrophils # 11.1 H INR BUN Glucose POC Glucose (mg/dL) 105 H Assessment and Plan Plan: Assessment: #1. Acute GI bleed, 4-5 episodes of dark and red bloody bowel movements this morning #2. Coronary artery disease with stenting #3. Hypertension #4. Hyperlipidemia #5. Nicotine dependence, carries [id number] smoking history #6. Recent upper respiratory infection with bronchitis, treated with Rocephin and Zithromax #7. History of left inguinal hernia repair #8. Sigmoid diverticulosis Plan: Continue with serial H&H's, GI service has been consulted and their input is appreciated. Stool studies were ordered per GI service Keep nothing by mouth with the exception of medications and ice chips. GI prophylaxis with Protonix. Nicotine patch. No active pulmonary complaints at this time. Patient remains hemodynamically stable. I performed a history & physical examination of the patient and discussed their management with my nurse practitioner, Kathy Kennedy. I reviewed the nurse practitioner's note and agree with the documented findings and plan of care. Lung sounds are clear. The findings and the impression was discussed with the patient. I attest to the documentation by the nurse practitioner. Time with Patient: Greater than 30
[2017-10-25 16:04] LABS: Basophils # (A) 0.1 k/uL (0-0.2); Basophils % (A) 1 %; Eosinophils # (A) 0.2 k/uL (0-0.7); Eosinophils % (A) 2 %; HCT 44.6 % (39.0-53.0); HGB 14.9 gm/dL (13.0-17.5); Lymphocytes # (A) 2.3 k/uL (1.0-4.8); Lymphocytes % (A) 24 %; MCH 31.5 pg (25.0-35.0); MCHC 33.3 g/dL (31.0-37.0); MCV 94.6 fL (80.0-100.0); Mean Platelet Volume 7.4; Monocytes # (A) 0.5 k/uL (0-1.0); Monocytes % (A) 5 %; Neutrophils # (A) 6.4 k/uL (1.3-7.7); Neutrophils % (A) 67 %; Platelet Count 196 k/uL (150-450); RBC 4.72 m/uL (4.30-5.90); RDW 14.4 % (11.5-15.5); WBC 9.5 k/uL (3.8-10.6)
--- NOTE | 2017-10-25 17:27 | P.HPIM ---
History of Present Illness Patient was admitted with the 3 episodes of bright red blood per rectum patient had a recent colonoscopy which was essentially within normal limits without any significant abnormalities. Patient denied any abdominal pain denied nausea vomiting patient had hemoglobin is 16 which is expected to drop. Plan is to monitor him overnight if he doesn't bleed patient will be discharged tomorrow. Patient is on IV fluids at this point of time patient takes aspirin 325 mg had cardiac catheterization years ago. Patient denied any NSAID use or any other anticoagulation. Review of Systems REVIEW OF SYSTEMS: CONSTITUTIONAL: No fever, no malaise, no fatigue. HEENT: No recent visual problems or hearing problems. Denied any sore throat. CARDIOVASCULAR: No chest pain, orthopnea, PND, no palpitations, no syncope. PULMONARY: No shortness of breath, no cough, no hemoptysis. GASTROINTESTINAL: As mentioned above NEUROLOGICAL: No headaches, no weakness, no numbness. HEMATOLOGICAL: Denies any bleeding or petechiae. GENITOURINARY: Denies any burning micturition, frequency, or urgency. MUSCULOSKELETAL/RHEUMATOLOGICAL: Denies any joint pain, swelling, or any muscle pain. ENDOCRINE: Denies any polyuria or polydipsia. The rest of the 14-point review of systems is negative. Past Medical History Past Medical History: Asthma, Coronary Artery Disease (CAD), Myocardial Infarction (ME) Additional Past Medical History / Comment(s): Pt states he does not have HTN or elevated cholesterol-he is these type medications d/t his cardiac stent, he has low back pain. Last Myocardial Infarction Date:: 2014 History of Any Multi-Drug Resistant Organisms: None Reported Past Surgical History: Heart Catheterization With Stent, Hernia Repair Additional Past Surgical History / Comment(s): 12/20/16 colonoscopy, L inguinal hernia repair, inguinal hernia repair as a child too. Past Anesthesia/Blood Transfusion Reactions: No Reported Reaction Date of Last Stent Placement:: 2014 Past Psychological History: No Psychological Hx Reported Additional Psychological History / Comment(s): Pt resides with his significant other. He is independent. 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 Smoking Status: Current every day smoker Past Alcohol Use History: Rare Past Drug Use History: None Reported - Past Family History Mother Family Medical History: COPD Additional Family Medical History / Comment(s): Mother is . Father Family Medical History: AICD/Pacemaker, Congestive Heart Failure (CHF), Myocardial Infarction (ME) Additional Family Medical History / Comment(s): Prostate CA, father had 1st of 3 MIs at the age of 61 yrs. Medications and Allergies Home Medications Medication Instructions Recorded Confirmed Type Aspirin EC [Ecotrin] 325 mg PO DAILY #90 tablet. 12/07/14 10/25/17 Rx Atorvastatin [Lipitor] 40 mg PO DAILY #90 tab 12/07/14 10/25/17 Rx Nitroglycerin Sl Tabs [Nitrostat] 0.4 mg SUBLINGUAL Q5M PRN #25 tab 12/07/14 Rx Nicotine 21Mg/24Hr Patch [Habitrol] 1 patch TRANSDERM DAILY #30 patch 12/21/16 10/25/17 Rx Metoprolol Tartrate [Lopressor] 25 mg PO HS 10/25/17 10/25/17 History Allergies Allergy/AdvReac Type Severity Reaction Status Date / Time No Known Allergies Allergy Verified 10/25/17 07:30 Physical Exam Vitals: Vital Signs Temp Pulse Resp BP Pulse Ox 10/25/17 17:00 65 28 H 90/62 10/25/17 16:00 98.5 F 60 17 105/62 94 L 10/25/17 15:00 59 L 19 100/65 96 10/25/17 14:00 64 29 H 91/62 95 10/25/17 13:00 64 18 99/66 96 10/25/17 12:30 66 12 122/63 96 10/25/17 12:00 69 29 H 110/67 97 10/25/17 11:30 68 22 125/70 95 10/25/17 11:00 73 23 118/76 96 10/25/17 10:50 69 22 118/76 98 10/25/17 10:41 97.4 F L 74 17 110/70 98 10/25/17 10:40 75 21 118/76 97 10/25/17 08:59 76 17 111/63 98 10/25/17 07:59 67 17 119/75 98 10/25/17 07:25 97.3 F L 85 16 106/79 96 Intake and Output 10/25/17 10/25/17 10/25/17 06:59 14:59 22:59 Intake Total 300 225 Output Total 300 Balance 300 -75 Intake: IV 300 225 Sodium Chloride 0.9% 1, 300 225 000 ml @ 75 mls/hr IV . [id number] ONE Rx#:[id number] Output: Urine 300 Other: Weight 89.358 kg 89.358 kg Patient Weight 10/26/17 06:59 Weight 89.358 kg PHYSICAL EXAMINATION: GENERAL: The patient is alert and oriented x3, not in any acute distress. Well developed, well nourished. HEENT: Pupils are round and equally reacting to light. EOMI. No scleral icterus. No conjunctival pallor. Normocephalic, atraumatic. No pharyngeal erythema. No thyromegaly. CARDIOVASCULAR: S1 and S2 present. No murmurs, rubs, or gallops. PULMONARY: Chest is clear to auscultation, no wheezing or crackles. ABDOMEN: Soft, nontender, nondistended, normoactive bowel sounds. No palpable organomegaly. MUSCULOSKELETAL: No joint swelling or deformity. EXTREMITIES: No cyanosis, clubbing, or pedal edema. NEUROLOGICAL: Gross neurological examination did not reveal any focal deficits. SKIN: No rashes. Results CBC & Chem 7: 10/25/17 15:36 10/25/17 07:50 Labs: Abnormal Lab Results - Last 24 Hours (Table) 10/25/17 10/25/17 10/25/17 Range/Units 07:50 07:50 07:50 WBC 13.1 H (3.8-10.6) k/uL Neutrophils # 10.4 H (1.3-7.7) k/uL INR 1.2 H (<1.2) BUN 21 H (9-20) mg/dL Glucose 123 H (74-99) mg/dL POC Glucose (mg/dL) (75-99) mg/dL 10/25/17 10/25/17 Range/Units 09:06 10:39 WBC 13.7 H (3.8-10.6) k/uL Neutrophils # 11.1 H (1.3-7.7) k/uL INR (<1.2) BUN (9-20) mg/dL Glucose (74-99) mg/dL POC Glucose (mg/dL) 105 H (75-99) mg/dL Thrombosis Risk Factor Assmnt - Choose All That Apply Any of the Below Risk Factors Present?: Yes Each Factor Represents 1 point: Age 41-60 years, Obesity (BMI >25) Other Risk Factors: No Other congenital or acquired thrombophilia - If yes, enter type in comment: No Thrombosis Risk Factor Assessment Total Risk Factor Score: 2 Thrombosis Risk Factor Assessment Level: Low Risk Assessment and Plan Plan: #1 acute lower GI bleed and acute blood loss anemia secondary to that: Patient will be wanted as mentioned above. #2 coronary artery disease with stenting in the past #3 hypertension #4 hyperlipidemia Patient will be resumed on appropriate home medications. Patient will be started back on diet, if patient doesn't have any clinical GI bleed patient will be discharged tomorrow.
[2017-10-25 20:45] VITALS: RESP 18; TEMP 97.1
[2017-10-25 21:37] LABS: Basophils % (A) 0 %; Eosinophils # (A) 0.2 k/uL (0-0.7); Eosinophils % (A) 2 %; HCT 40.3 % (39.0-53.0); HGB 13.8 gm/dL (13.0-17.5); Lymphocytes # (A) 2.3 k/uL (1.0-4.8); Lymphocytes % (A) 27 %; MCH 31.5 pg (25.0-35.0); MCHC 34.2 g/dL (31.0-37.0); MCV 91.9 fL (80.0-100.0); Mean Platelet Volume 7.2; Monocytes # (A) 0.4 k/uL (0-1.0); Monocytes % (A) 5 %; Neutrophils # (A) 5.6 k/uL (1.3-7.7); Neutrophils % (A) 65 %; Platelet Count 191 k/uL (150-450); RBC 4.38 m/uL (4.30-5.90); RDW 13.2 % (11.5-15.5); WBC 8.7 k/uL (3.8-10.6)
[2017-10-26 07:16] LABS: Appearance,Urine Clear (Clear); Bilirubin,Urine Negative (Negative); Blood,Urine Negative (Negative); Color,Urine Yellow; Glucose,Urine (UA) Trace (Negative); Ketones,Urine 1+ (Negative); Leukocyte Esterase,Urine Negative (Negative); Nitrite,Urine Negative (Negative); Protein,Urine Negative (Negative); Urobilinogen,Urine <2.0 mg/dL (<2.0)
[2017-10-26 07:42] VITALS: BP 106/68; PULSE 64
[2017-10-26] MEDS ORDERED: PANTOPRAZOLE 40 MG/10 ML VIAL ONE (09:00)
[2017-10-26 09:08] LABS: Basophils % (A) 0 %; Eosinophils # (A) 0.1 k/uL (0-0.7); Eosinophils % (A) 2 %; HCT 42.4 % (39.0-53.0); HGB 14.3 gm/dL (13.0-17.5); Lymphocytes # (A) 1.6 k/uL (1.0-4.8); Lymphocytes % (A) 28 %; MCHC 33.8 g/dL (31.0-37.0); MCV 91.9 fL (80.0-100.0); Mean Platelet Volume 6.9; Monocytes # (A) 0.3 k/uL (0-1.0); Monocytes % (A) 5 %; Neutrophils # (A) 3.6 k/uL (1.3-7.7); Neutrophils % (A) 64 %; Platelet Count 205 k/uL (150-450); RBC 4.62 m/uL (4.30-5.90); RDW 13.2 % (11.5-15.5); WBC 5.7 k/uL (3.8-10.6)
[2017-10-26 09:32] LABS: Anion Gap 6 mmol/L; Blood Urea Nitrogen 18 mg/dL (9-20); Carbon Dioxide 25 mmol/L (22-30); Chloride 108 mmol/L (98-107); Glucose 87 mg/dL (74-99); Phosphorus 2.9 mg/dL (2.5-4.5); Potassium 4.4 mmol/L (3.5-5.1); Sodium 139 mmol/L (137-145)
--- NOTE | 2017-10-26 09:46 | P.PN ---
Subjective Progress Note Date: 10/26/17 Principal diagnosis: GI bleed no recurrent rectal bleeding 24 hours. Hungry, requesting diet. Hemoglobin 14.3 Minimal abdominal discomfort. Objective - Vital Signs Vital signs: Vital Signs Temp 97.1 F L 10/26/17 07:00 Pulse 64 10/26/17 07:00 Resp 18 10/26/17 07:00 BP 106/68 10/26/17 07:00 Pulse Ox 98 10/26/17 07:00 Intake & Output 10/25/17 10/26/17 10/26/17 18:59 06:59 18:59 Intake Total 600 75 Output Total 300 Balance 300 75 Weight 89.358 kg Intake: IV 600 75 Sodium Chloride 0.9% 1, 600 75 000 ml @ 75 mls/hr IV . [id number] Rx#:[id number] Output: Urine 300 Other: # Voids 0 - Exam General appearance: The patient is alert, oriented, in no acute distress. HET: Head is normocephalic and atraumatic. Pupils are equal and reactive. Oropharynx is clear without lesions. Neck: Supple without lymphadenopathy. Trachea midline. Heart: S1 S2. Regular rate and rhythm. Lungs: No crackles or wheezes are heard. Abdomen: Soft, nontender, nondistended with bowel sounds. No peritoneal signs. No palpable organomegaly or masses. Extremities: Normal skin color and turgor. No cyanosis, rash, ulceration, clubbing, or edema. Radial and pedal pulses are 2/4 bilaterally. Neurological: No focal deficits. Strength and sensation are grossly intact. - Labs CBC & Chem 7: 10/26/17 08:50 10/26/17 08:50 Labs: Abnormal Lab Results - Last 24 Hours (Table) 10/25/17 10/25/17 10/26/17 Range/Units 06:47 10:39 08:50 Chloride 108 H (98-107) mmol/L POC Glucose (mg/dL) 105 H (75-99) mg/dL Urine Glucose (UA) Trace H (Negative) Urine Ketones 1+ H (Negative) Assessment and Plan (1) Gastrointestinal hemorrhage Narrative/Plan: Hematochezia with lower abdominal cramping suspect ischemic colitis possible superimposed diverticular bleed possible combination of both. Current Visit: Yes Status: Acute Code(s): K92.2 - GASTROINTESTINAL HEMORRHAGE, UNSPECIFIED SNOMED Code(s): 08021822 Plan: 1. Full liquids advance as tolerate. 2. Discharge per medicine. Assessment and plan of care discussed with Dr. Davila.
--- NOTE | 2017-10-26 22:54 | PN ---
PROGRESS NOTE A 52-year-old white male patient that was admitted to the hospital on 10/25/2017 with acute onset of GI bleeding of dark and bright red blood per rectum. He had 4 or 5 episodes of bloody bowel movements at home and in the emergency room. He has had no further bleeding since admission. His hemoglobin remained stable. It is 14.3 on 10/26/2017. The rest of his blood work is unremarkable, no electrolyte abnormality, no leukocytosis. He is being seen on the medical-surgical floor, he is awake, alert, denies any acute distress. No acute events overnight. Hemodynamically he remains stable. He is on room air, denies any dyspnea, cough, or congestion. He denies any abdominal discomfort. Denies any lightheadedness or weakness. Did not require any blood transfusions this admission. He will be started on clear liquid diet today. GI service is following the patient, treating him conservatively. Most likely, his bleeding is diverticular in nature, and has spontaneously resolved. OBJECTIVE: VITAL SIGNS: Vital signs as documented in the flow sheets. EXAM: GENERAL EXAM: Alert, 52-year-old white male, comfortable in no apparent distress. HEAD: Normocephalic and atraumatic. EYES: Normal reaction of pupils equal size. Conjunctiva pink, sclerae white. NOSE: Clear with thin turbinates. THROAT: No erythema or exudates. NECK: No masses, no JVD, no thyroid enlargement, no adenopathy. CHEST: No chest wall deformity. Symmetrical expansion. LUNGS: Equal air entry with no crackles, wheeze, rhonchi, or dullness. CVS: Regular rate and rhythm, S1 and S2 are normal, no gallops, no murmurs, no rubs. ABDOMEN: Soft, nontender, no organomegaly, normal bowel sounds. No guarding or rigidity. EXTREMITIES: No clubbing or edema. No cyanosis. 2+ pulses in upper and lower extremities. MUSCULOSKELETAL: Muscle strength and tone are normal. SPINE: No scoliosis or deformity. SKIN: No rashes. CENTRAL NERVOUS SYSTEM: Alert and oriented x3. No focal deficits, tone is normal in all 4 extremities. PSYCHIATRIC: Alert and oriented x3, appropriate affect. Intact judgment and insight. LABS: WBC is 5.7, RBC is 4.62, hemoglobin is 14.3, hematocrit is 42.4, MCV is 91.9, MCH is 31, MCHC is 33.8, platelets are 205. Sodium is 139, potassium is 4.4, chloride is 108, carbon dioxide is 25, anion gap is 6, BUN is 18, creatinine is 0.79, GFR is greater than 60, calcium is 9.0, and phosphorus is 2.9. ASSESSMENT: 1. Acute GI bleed, for 5 episodes of dark and red bloody bowel movements at home and one in the emergency room on 10/25/2017, no further bleeding since admission. Remained hemodynamically stable. 2. Coronary artery disease with stenting. 3. Hypertension. 4. Hyperlipidemia. 5. Nicotine dependence, carries 30 pack-year smoking history. 6. Recent upper respiratory infection with bronchitis, treated with Rocephin and Zithromax. 7. History of left inguinal hernia repair. 8. Sigmoid diverticulosis. PLAN: The patient remains hemodynamically stable and did not require any blood transfusions this admission. Hemoglobin currently is 14.3. He has had no further episodes of GI bleeding. Has been started on clear liquid diet, tolerating it well. From pulmonary/critical care standpoint he is stable for discharge home today with follow up with the GI service. The patient was seen and examined by Dr. Botello. The management of his care was discussed with the nurse practitioner, Evelyn Kennedy. The documented findings and plan of care were discussed with the patient. Lung sounds are clear. No further episodes of GI bleeding. The patient is stable for discharge home today. Time with the patient less than 30 minutes. MMODL / IJN: [id number] /
--- NOTE | 2017-10-27 11:33 | P.DS ---
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 PHYSICAL EXAMINATION: GENERAL: The patient is alert and oriented x3, not in any acute distress. Well developed, well nourished. HEENT: Pupils are round and equally reacting to light. EOMI. No scleral icterus. No conjunctival pallor. Normocephalic, atraumatic. No pharyngeal erythema. No thyromegaly. CARDIOVASCULAR: S1 and S2 present. No murmurs, rubs, or gallops. PULMONARY: Chest is clear to auscultation, no wheezing or crackles. ABDOMEN: Soft, nontender, nondistended, normoactive bowel sounds. No palpable organomegaly. MUSCULOSKELETAL: No joint swelling or deformity. EXTREMITIES: No cyanosis, clubbing, or pedal edema. NEUROLOGICAL: Gross neurological examination did not reveal any focal deficits. SKIN: No rashes. Assessment and Plan Plan: #1 acute lower GI bleed and acute blood loss anemia secondary to that #2 coronary artery disease with stenting in the past #3 hypertension #4 hyperlipidemia Plan - Discharge Summary Discharge Rx Participant: No New Discharge Prescriptions: New Aspirin [Adult Low Dose Aspirin EC] 81 mg PO QAM #30 tablet. Discontinued Aspirin EC [Ecotrin] 325 mg PO DAILY #90 tablet. No Action Atorvastatin [Lipitor] 40 mg PO DAILY #90 tab Nitroglycerin Sl Tabs [Nitrostat] 0.4 mg SUBLINGUAL Q5M PRN #25 tab PRN Reason: Chest Pain Nicotine 21Mg/24Hr Patch [Habitrol] 1 patch TRANSDERM DAILY #30 patch Metoprolol Tartrate [Lopressor] 25 mg PO HS Discharge Medication List Atorvastatin [Lipitor] 40 mg PO DAILY #90 tab 12/07/14 [Rx] Nitroglycerin Sl Tabs [Nitrostat] 0.4 mg SUBLINGUAL Q5M PRN #25 tab 12/07/14 [Rx ] Nicotine 21Mg/24Hr Patch [Habitrol] 1 patch TRANSDERM DAILY #30 patch 12/21/16 [ Rx] Metoprolol Tartrate [Lopressor] 25 mg PO HS 10/25/17 [History] Aspirin [Adult Low Dose Aspirin EC] 81 mg PO QAM #30 tablet. 10/26/17 [Rx] Follow up Appointment(s)/Referral(s): Kieran Mcqueen MD [Primary Care Provider] - 1-2 days Patient Instructions/Handouts: Gastrointestinal Bleeding (DC) Activity/Diet/Wound Care/Special Instructions: Follow up with your printing press machine operator in 1 week. Low fat diet. NO smoking, cessation information given. Activity as tolerated. Discharge Disposition: HOME SELF-CARE
== END 2017-10-26 13:48 | disposition home or self-care (01) ==
LOC: EC 07:22 → INTOOBSV 09:00 → 4MS4W 09:00 → 6ICU 10:01 → 4MS4W 20:17
PROVIDERS: ADMIT Hospitalist; ATTEND Hospitalist
DX: K92.2 Gastrointestinal hemorrhage, unspecified (principal); I25.10 Atherosclerotic heart disease of native coronary artery without angina pectoris; Z95.5 Presence of coronary angioplasty implant and graft; I10 Essential (primary) hypertension; E78.5 Hyperlipidemia, unspecified; F17.200 Nicotine dependence, unspecified, uncomplicated; J06.9 Acute upper respiratory infection, unspecified; J40 Bronchitis, not specified as acute or chronic; K57.30 Diverticulosis of large intestine without perforation or abscess without bleeding; D62 Acute posthemorrhagic anemia; E66.9 Obesity, unspecified; Z68.28 Body mass index [BMI] 28.0-28.9, adult; Z79.82 Long term (current) use of aspirin; Z79.899 Other long term (current) drug therapy; Z80.42 Family history of malignant neoplasm of prostate; Z82.5 Family history of asthma and other chronic lower respiratory diseases; I25.2 Old myocardial infarction; M54.5 Low back pain
CPT/HCPCS: 99285; 96361 ×2; 96374; 36415; 80053; 80048; 83735 ×2; 84100; 85025 ×2; 85610; 85730; 81003; G0378 ×2; S4990; C9113

== ENCOUNTER 2018-01-10 17:33 | Observation (INO) | payer BC ==
[2018-01-10] MEDS ORDERED: NITROGLYCERIN OINT 1 INCH/GM PACKET TOPICAL STA (17:51)
[2018-01-10] MEDS ORDERED: ASPIRIN 81 MG PO STA (17:51)
[2018-01-10] MEDS ORDERED: MORPHINE SULFATE 4 MG/ML SYRINGE IV STA (17:51)
[2018-01-10] MEDS ORDERED: ONDANSETRON 4 MG/2 ML VIAL IVP STA (17:51)
[2018-01-10] MEDS ORDERED: SODIUM CHLORIDE 0.9% 1,000 ML IV STA (17:51)
[2018-01-10] MEDS ORDERED: ACETAMINOPHEN TAB 500 MG TAB PO STA (17:52)
[2018-01-10 18:10] LABS: Basophils % (A) 0 %; Eosinophils # (A) 0.3 k/uL (0-0.7); Eosinophils % (A) 3 %; HCT 48.9 % (39.0-53.0); HGB 17.7 gm/dL (13.0-17.5); Lymphocytes # (A) 2.3 k/uL (1.0-4.8); Lymphocytes % (A) 21 %; MCH 31.6 pg (25.0-35.0); MCHC 36.1 g/dL (31.0-37.0); MCV 87.6 fL (80.0-100.0); Mean Platelet Volume 7.1; Monocytes # (A) 0.5 k/uL (0-1.0); Monocytes % (A) 4 %; Neutrophils # (A) 7.5 k/uL (1.3-7.7); Neutrophils % (A) 70 %; Platelet Count 217 k/uL (150-450); RBC 5.59 m/uL (4.30-5.90); RDW 13.3 % (11.5-15.5); WBC 10.7 k/uL (3.8-10.6)
[2018-01-10 18:19] LABS: ALT 20 U/L (21-72); AST 20 U/L (17-59); Albumin 4.3 g/dL (3.5-5.0); Alkaline Phosphatase 114 U/L (38-126); Anion Gap 9 mmol/L; Blood Urea Nitrogen 15 mg/dL (9-20); Calcium 9.3 mg/dL (8.4-10.2); Carbon Dioxide 28 mmol/L (22-30); Chloride 103 mmol/L (98-107); Glucose 82 mg/dL (74-99); Magnesium 2.1 mg/dL (1.6-2.3); Potassium 3.9 mmol/L (3.5-5.1); Sodium 140 mmol/L (137-145); Total Bilirubin 0.9 mg/dL (0.2-1.3); Total Protein 6.8 g/dL (6.3-8.2)
[2018-01-10 18:26] LABS: D-Dimer <0.17 mg/L FEU (<0.60); INR 1.2 (<1.2); Partial Thromboplastin Time 25.5 sec (22.0-30.0); Prothrombin Time 11.4 sec (9.0-12.0)
[2018-01-10 18:31] LABS: Creatine Kinase 62 U/L (55-170)
[2018-01-10 18:44] LABS: Creatine Kinase MB 0.5 ng/mL (0.0-2.4); Troponin I <0.012 ng/mL (0.000-0.034)
--- NOTE | 2018-01-10 18:45 | XR ---
EXAMINATION TYPE: XR chest 2V DATE OF EXAM: 01/10/2018 COMPARISON: Prior chest x-ray 12/05/2014 HISTORY: Chest pain TECHNIQUE: Frontal and lateral views of the chest are obtained. FINDINGS: There is no focal air space opacity, pleural effusion, or pneumothorax seen. The cardiac silhouette size is within normal limits. There are overlying cardiac leads. The osseous structures a re intact. IMPRESSION: No acute cardiopulmonary process.
--- NOTE | 2018-01-10 20:22 | ED ---
Chest Pain HPI - General Chief Complaint: Chest Pain Stated Complaint: Chest Pain Time Seen by Provider: 01/10/18 17:41 Source: patient Mode of arrival: wheelchair Limitations: no limitations - History of Present Illness Initial Comments: Years old male comes in with the chest pain and pressure since this morning it started around 11 AM he has history of heart disease had a myocardial infarction his last cardiac cath was in 12/20/2016 chest pain came on when he was resting he was also short winded. The worse with deep breaths he also had some sort of sinus and cold issues going on for last few days and he had 1 stent put and about 2 years ago he still smoking he had a GI bleed episode When he stopped taking his aspirin 325 mg and he was switched to 81 mg daily. He denies any headaches no blurred vision no slurred speech has chest pain and shortness of breath no abdominal pain no frequency urgency dysuria no symptoms of TIA or CVA - Related Data Home Medications Medication Instructions Recorded Confirmed Metoprolol Tartrate [Lopressor] 25 mg PO HS 10/25/17 01/10/18 Aspirin [Adult Low Dose Aspirin EC] 81 mg PO DAILY 01/10/18 01/10/18 Previous Rx's Medication Instructions Recorded Atorvastatin [Lipitor] 40 mg PO DAILY #90 tab 12/07/14 Allergies Allergy/AdvReac Type Severity Reaction Status Date / Time No Known Allergies Allergy Verified 01/10/18 18:22 Review of Systems ROS Statement: Those systems with pertinent positive or pertinent negative responses have been documented in the HPI. ROS Other: All systems not noted in ROS Statement are negative. EKG Findings - EKG Comments: EKG Findings:: EKG is normal sinus rhythm ventricular rate is 70 MI interval is 160 QRS duration is 90 QT/QTC 390/425. This EKG does not reveal any ST elevation or ST depression Past Medical History Past Medical History: Asthma, Coronary Artery Disease (CAD), Myocardial Infarction (CA) Additional Past Medical History / Comment(s): Pt states he does not have HTN or elevated cholesterol-he is these type medications d/t his cardiac stent, he has low back pain. Last Myocardial Infarction Date:: 2014 History of Any Multi-Drug Resistant Organisms: None Reported Past Surgical History: Heart Catheterization With Stent, Hernia Repair Additional Past Surgical History / Comment(s): 12/20/16 colonoscopy, L inguinal hernia repair, inguinal hernia repair as a child too. Past Anesthesia/Blood Transfusion Reactions: No Reported Reaction Date of Last Stent Placement:: 2014 Past Psychological History: No Psychological Hx Reported Smoking Status: Current every day smoker Past Alcohol Use History: Rare Past Drug Use History: None Reported - Past Family History Mother Family Medical History: COPD Additional Family Medical History / Comment(s): Mother is . Father Family Medical History: AICD/Pacemaker, Congestive Heart Failure (CHF), Myocardial Infarction (CA) Additional Family Medical History / Comment(s): Prostate CA, father had 1st of 3 MIs at the age of 61 yrs. General Exam - General Exam Comments Initial Comments: General: The patient is awake and alert, in no distress, and does not appear acutely ill. Skin: Skin is warm and dry and no rashes or lesions are noted. Eye: Pupils are equal, round and reactive to light, extra-ocular movements are intact; there is normal conjunctiva bilaterally. Ears, nose, mouth and throat: There are moist mucous membranes and no oral lesions. Neck: The neck is supple, there is no tenderness or JVD. Cardiovascular: There is a regular rate and rhythm. No murmur, rub or gallop is appreciated. Respiratory: To auscultation bilateral, no wheezing no rhonchi no distress respiratory roche noticed Gastrointestinal: Soft, non-distended, non-tender abdomen without masses or organomegaly noted. There is no rebound or guarding present. Bowel sounds are unremarkable. Back: There is no tenderness to palpation in the midline. There is no obvious deformity. Musculoskeletal: Normal ROM, no tenderness, There is no pedal edema. There is no calf tenderness or swelling. No cords were appreciated. Neurological: CN II-XII intact, Cranial nerves III through XII are intact. There are no obvious motor or sensory deficits. Coordination appears grossly intact. Speech is normal. Psychiatric: Cooperative, appropriate mood & affect, normal judgment. Limitations: no limitations Course Vital Signs 01/10/18 01/10/18 01/10/18 17:37 18:15 19:20 Temperature 97.6 F Pulse Rate 85 75 60 Respiratory 18 16 18 Rate Blood Pressure 135/83 141/79 116/73 O2 Sat by Pulse 97 96 96 Oximetry Patient was reassessed at term at 1999, his troponin is unremarkable surgery just d-dimer, CBC, comp his metabolic panel, chest x-ray are all unremarkable considering his history of coronary artery disease and a chest pressure lasting how good several hours up and can admit him observation since there are no EKG changes and troponin is negative and he is chest pain-free now I'm not to heparinize him he be admitted observation with a cardiology consult will be admitted to Dr. Gomez's service Disposition Clinical Impression: Chest pain Disposition: ADMITTED IP TO THIS HOSP Condition: Good Referrals: Kieran Mcqueen MD [Primary Care Provider] - 1-2 days
[2018-01-10] MEDS ORDERED: NITROGLYCERIN SL TABS 0.4 MG TAB SUBLINGUAL PRN (20:25)
[2018-01-10] MEDS ORDERED: ACETAMINOPHEN TAB 325 MG TAB PO PRN (20:25)
[2018-01-10] MEDS ORDERED: MORPHINE SULFATE 4 MG/ML SYRINGE IV PRN (20:25)
[2018-01-10] MEDS ORDERED: METOPROLOL TARTRATE 25 MG TAB PO SCH (21:00)
[2018-01-10 21:46] VITALS: RESP 16; BMI 27.8
[2018-01-10] MEDS: NICOTINE 21MG/24HR PATCH TRANSDERM SCH (21:52)
[2018-01-11 01:44] LABS: Creatine Kinase 54 U/L (55-170)
[2018-01-11 01:55] LABS: Creatine Kinase MB 0.5 ng/mL (0.0-2.4); Troponin I <0.012 ng/mL (0.000-0.034)
[2018-01-11 07:24] LABS: Cholesterol 98 mg/dL (<200); HDL Cholesterol 39 mg/dL (40-60); LDL Cholesterol,Calculated 47 mg/dL (0-99); Triglycerides 58 mg/dL (<150)
[2018-01-11 07:37] VITALS: TEMP 98.9
[2018-01-11 07:44] LABS: Creatine Kinase 55 U/L (55-170)
[2018-01-11 07:56] LABS: Creatine Kinase MB 0.5 ng/mL (0.0-2.4); Troponin I <0.012 ng/mL (0.000-0.034)
[2018-01-11] MEDS ORDERED: ASPIRIN 81 MG PO SCH (09:00)
[2018-01-11] MEDS ORDERED: ATORVASTATIN 40 MG TAB PO SCH (09:00)
[2018-01-11] MEDS ORDERED: ASPIRIN 325 MG TAB PO SCH (09:00)
[2018-01-11] MEDS: NICOTINE 21MG/24HR PATCH TRANSDERM SCH (11:26)
--- NOTE | 2018-01-11 11:38 | P.CRDCN ---
History of Present Illness Consult date: 01/11/18 Consult reason: chest pain History of present illness: Mr. Azevedo is a pleasant 52-year-old male past medical history significant for coronary artery disease with stent to the distal RCA 2014, dyslipidemia and chronic tobacco abuse. He sees Dr. Amor in the office. We have been asked to see him in consultation for complaints of chest pain. Starting yesterday he developed pain in the right shoulder region radiated around to the anterior chest wall up into the right neck and ultimately settled across the entire anterior chest wall from right to left. Described as a pressure sensation associated with shortness of breath. He states the pressure has been constant since it started yesterday morning and it hurts worse when he takes in a deep breath and he feels like it's hard for him to catch his breath. Denies associated palpitations, dizziness, nausea, vomiting or diaphoresis. EKG on arrival reveals sinus mechanism with no acute ST or T-wave abnormalities. Chest x-ray is negative for an acute cardiopulmonary process. Laboratory data reviewed, WBC 10.7 hemoglobin 17.7, platelets 217, d-dimer less than 0.17, potassium 3.9, magnesium 2.1, creatinine 0.6, cardiac enzymes negative 3, LDL 47, HDL 39. Current cardiac medications include Lopressor 25 mg daily, atorvastatin 40 mg daily and aspirin a 1 mg daily. Cardiac catheterization done November 2014 revealed left main artery without any obstructive coronary artery disease, LAD with 90% distal stenosis, left circumflex with no obstructive disease, ramus intermedius with no evidence of high-grade stenosis, RCA 30-40% plaque of the PDA, with a 99% lesion in the distal RCA. He underwent angioplasty at that time. Most recent echocardiogram reveals preserved left ventricular systolic function with ejection fraction 50%. Review of Systems At the time of my exam: CONSTITUTIONAL: Denies fever. Denies chills. EYES: Denies blurred vision. Denies vision changes. Denies eye pain. EARS, NOSE, MOUTH & THROAT: Denies headache. Denies sore throat. Denies ear pain. CARDIOVASCULAR: Complains of mild chest tightness worse with inspiration. Complains of shortness of breath. Denies orthopnea. Denies PND. Denies palpitations. RESPIRATORY: Denies cough. GASTROINTESTINAL: Denies abdominal pain. Denies diarrhea. Denies constipation. Denies nausea. Denies vomiting. MUSCULOSKELETAL: Denies myalgias. INTEGUMENTARY: Denies pruitis. Denies rash. NEUROLOGIC: Denies numbness. Denies tingling. Denies weakness. PSYCHIATRIC: Denies anxiety. Denies depression. ENDOCRINE: Denies fatigue. Denies weight change. Denies polydipsia. Denies polyurina. GENITOURINARY: Denies burning, hematuria or urgency with micturation. HEMATOLOGIC: Denies history of anemia. Denies bleeding. Past Medical History Past Medical History: Asthma, Coronary Artery Disease (CAD), GI Bleed, Myocardial Infarction (ID) Additional Past Medical History / Comment(s): Pt states he does not have HTN or elevated cholesterol-he is these type medications d/t his cardiac stent, he has low back pain. Last Myocardial Infarction Date:: 2014 History of Any Multi-Drug Resistant Organisms: None Reported Past Surgical History: Heart Catheterization With Stent, Hernia Repair Additional Past Surgical History / Comment(s): 12/20/16 colonoscopy, L inguinal hernia repair, inguinal hernia repair as a child too. Past Anesthesia/Blood Transfusion Reactions: No Reported Reaction Date of Last Stent Placement:: 2014 Smoking Status: Current every day smoker - Past Family History Mother Family Medical History: COPD Additional Family Medical History / Comment(s): Mother is . Father Family Medical History: AICD/Pacemaker, Congestive Heart Failure (CHF), Myocardial Infarction (ID) Additional Family Medical History / Comment(s): Prostate CA, father had 1st of 3 MIs at the age of 61 yrs. Medications and Allergies Home Medications Medication Instructions Recorded Confirmed Type Atorvastatin [Lipitor] 40 mg PO DAILY #90 tab 12/07/14 01/10/18 Rx Metoprolol Tartrate [Lopressor] 25 mg PO HS 10/25/17 01/10/18 History Aspirin [Adult Low Dose Aspirin EC] 81 mg PO DAILY 01/10/18 01/10/18 History Allergies Allergy/AdvReac Type Severity Reaction Status Date / Time No Known Allergies Allergy Verified 01/10/18 21:26 Physical Exam Vitals: Vital Signs Temp Pulse Pulse Resp BP BP Pulse Ox 01/11/18 07:35 98.9 F 74 16 106/68 100 01/11/18 03:42 98.1 F 65 16 104/59 94 L 01/11/18 03:23 16 01/10/18 22:17 16 01/10/18 21:41 97.7 F 70 16 122/70 95 01/10/18 21:21 97.0 F L 55 L 18 117/76 96 01/10/18 20:27 97 F L 60 18 130/77 97 01/10/18 19:20 60 18 116/73 96 01/10/18 18:15 75 16 141/79 96 01/10/18 17:37 97.6 F 85 18 135/83 97 Intake and Output 01/10/18 01/11/18 01/11/18 22:59 06:59 14:59 Intake Total 350 800 Balance 350 800 Intake: IV 100 800 Sodium Chloride 0.9% 1, 100 800 000 ml @ 100 mls/hr IV . Q10H STA Rx#:[id number] Oral 250 Other: Voiding Method Toilet Toilet # Voids 1 2 Weight 90.7 kg Blood pressure 106/68 heart rate 74 afebrile maintaining oxygen saturation on nasal cannula 2 L. GENERAL: This is a 52-year-old male in no apparent distress at the time of my examination. HEENT: Head is atraumatic, normocephalic. Pupils are equal, round. Sclerae anicteric. Conjunctivae are clear. Mucous membranes of the mouth are moist. Neck is supple. There is no jugular venous distention. No carotid bruit is heard. LUNGS: Clear to auscultation no wheezes, rales or rhonchi. No chest wall tenderness is noted on palpation or with deep breathing. HEART: Regular rate and rhythm with systolic ejection murmur at the base, no rubs or gallops. S1 and S2 heard. ABDOMEN: Soft, nontender. Bowel sounds are heard. No organomegaly noted. EXTREMITIES: No evidence of peripheral edema and no calf tenderness noted. VASCULAR: Radial and dorsalis pedis pulses palpated, no evidence of clubbing. NEUROLOGIC: Patient is awake, alert and oriented x3. Results 01/10/18 17:59 01/10/18 17:59 Cardiac Enzymes 01/10/18 01/10/18 01/11/18 Range/Units 17:59 17:59 00:53 AST 20 (17-59) U/L CK-MB (CK-2) 0.5 0.5 (0.0-2.4) ng/mL Troponin I <0.012 <0.012 (0.000-0.034) ng/mL 01/11/18 Range/Units 06:34 AST (17-59) U/L CK-MB (CK-2) 0.5 (0.0-2.4) ng/mL Troponin I <0.012 (0.000-0.034) ng/mL Coagulation 01/10/18 Range/Units 17:59 PT 11.4 (9.0-12.0) sec APTT 25.5 (22.0-30.0) sec Lipids 01/11/18 Range/Units 06:34 Triglycerides 58 (<150) mg/dL Cholesterol 98 (<200) mg/dL HDL Cholesterol 39 L (40-60) mg/dL CBC 01/10/18 Range/Units 17:59 WBC 10.7 H (3.8-10.6) k/uL RBC 5.59 (4.30-5.90) m/uL Hgb 17.7 H (13.0-17.5) gm/dL Hct 48.9 (39.0-53.0) % Plt Count 217 (150-450) k/uL Comprehensive Metabolic Panel 01/10/18 Range/Units 17:59 Sodium 140 (137-145) mmol/L Potassium 3.9 (3.5-5.1) mmol/L Chloride 103 (98-107) mmol/L Carbon Dioxide 28 (22-30) mmol/L BUN 15 (9-20) mg/dL Creatinine 0.86 (0.66-1.25) mg/dL Glucose 82 (74-99) mg/dL Calcium 9.3 (8.4-10.2) mg/dL AST 20 (17-59) U/L ALT 20 L (21-72) U/L Alkaline Phosphatase 114 (38-126) U/L Total Protein 6.8 (6.3-8.2) g/dL Albumin 4.3 (3.5-5.0) g/dL Current Medications Generic Name Dose Route Start Last Admin Trade Name Freq PRN Reason Stop Dose Admin Acetaminophen 650 mg 01/10/18 20:25 Tylenol Tab PO Q4HR PRN Pain Aspirin 81 mg 01/11/18 09:00 Aspirin PO DAILY VIKI Atorvastatin Calcium 40 mg 01/11/18 09:00 Lipitor PO DAILY VIKI Metoprolol Tartrate 25 mg 01/10/18 21:00 01/10/18 21:52 Lopressor PO 25 mg HS VIKI Administration Morphine Sulfate 4 mg 01/10/18 20:25 Morphine Sulfate (Inj) IV Q5M PRN Chest Pain Nicotine 1 patch 01/10/18 21:45 01/10/18 21:52 Habitrol 21mg/24hr Patch TRANSDERM 1 patch DAILY VIKI Administration Nitroglycerin 0.4 mg 01/10/18 20:25 Nitrostat SUBLINGUAL Q5M PRN Chest Pain Intake and Output 01/10/18 01/11/18 01/11/18 22:59 06:59 14:59 Intake Total 350 800 Balance 350 800 Intake: IV 100 800 Sodium Chloride 0.9% 1, 100 800 000 ml @ 100 mls/hr IV . Q10H STA Rx#:[id number] Oral 250 Other: Voiding Method Toilet Toilet # Voids 1 2 Weight 90.7 kg 01/10/18 17:59 01/10/18 17:59 Assessment and Plan Assessment: ASSESSMENT 1. Chest pain, atypical. Acute coronary event has been ruled out with EKG no evidence of ischemia and negative cardiac enzymes. 2. History of coronary artery disease recent stent of the distal RCA 2014 3. Dyslipidemia 4. Chronic tobacco abuse PLAN Obtain 2-D echocardiogram and Doppler study to assess cardiac structure and function. Perform Cardiolite stress test to rule out reversible ischemia. Continue aspirin, atorvastatin, Lopressor as was previously ordered. Further recommendations based upon clinical course and diagnostic tests findings. Stress testing is negative he is stable from a cardiac standpoint, follow-up with Dr. Amor in 2-3 weeks. Nurse Practitioner note has been reviewed, I agree with a documented findings and plan of care. Patient was seen and examined.
[2018-01-11 11:48] VITALS: BP 114/68; PULSE 100
--- NOTE | 2018-01-11 12:03 | NM ---
EXAMINATION TYPE: NM stress cardiolite complete DATE OF EXAM: 01/11/2018 COMPARISON: NONE HISTORY: Prior heart catheterization and prior myocardial infarction in 2015. Tobacco abuse with ches t pain. TECHNIQUE: After the intravenous administration of 10.28 mCi Tc 99m Sestamibi - Rest images obtained 50 minutes post injection. The patient exercised using a CRYSTAL protocol and 1 minute prior to peak exercise was injected with 26 mCi Tc 99m Sestamibi - Stress images obtained 20 minutes post injectio n. FINDINGS: Targeted heart rate was achieved during performance of the study. Review of stress and rest SPECT abdulaziz ges demonstrates no distinct perfusion abnormality. Gated analysis shows normal wall motion with an estimated left ventricular ejection fraction of 67 %. TID is calculated at 0.57, within normal limits . IMPRESSION: 1. No scintigraphic evidence for reversible ischemia 2. Estimated left ventricular ejection fraction of 67%, within normal limits.
--- NOTE | 2018-01-11 14:23 | HP ---
HISTORY AND PHYSICAL DATE OF ADMISSION: 01/10/2018 PRESENTING COMPLAINT: Chest pain. HISTORY OF PRESENTING COMPLAINT: A very pleasant 52-year-old patient of Dr. Mcqueen. Chronic stable medical conditions include hypertension, hyperlipidemia, chronic nicotine dependence. The patient has a known history of coronary artery disease with stent. Also had a bout of ischemic colitis a few months ago. The patient yesterday developed pressure on the right side of the chest going to the right shoulder, did go to the right neck. There was no dizziness. No lightheadedness. No perspiration. No sweating. No nausea. It lasted for a good 4 to 5 hours before decided to come to the ER. Admitted for unstable angina. The patient has continued to smoke. The patient has been having bouts of coughing sometimes and some running nose in the last few weeks. Occasional wheezing. REVIEW OF SYSTEMS: CONSTITUTIONAL: None. HEENT: As above. RESPIRATORY: As above. CARDIOVASCULAR: As above. Left precordial pain. GASTROINTESTINAL: None, GENITOURINARY: None. MUSCULOSKELETAL: None. DERMATOLOGICAL: None. HEMATOLOGIC: None. LYMPHATIC: None. PSYCHIATRY: None. NEUROLOGICAL: None. PAST HISTORY: Past history of coronary artery disease with stent, ischemic colitis, hypertension, hyperlipidemia. PAST SURGICAL HISTORY: Cardiac cath with stent, left inguinal hernia repair. SOCIAL HISTORY: Lives with significant other. 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 Smokes about a pack a day for many years. Alcohol rarely. FAMILY HISTORY: Family history of congestive heart failure, prostate cancer and father had myocardial infarctions. HOME MEDICATIONS: 1. Lopressor 25 mg q.h.s. 2. Lipitor 40 mg daily. 3. Aspirin 81 mg p.o. daily. ALLERGIES: None. PHYSICAL EXAMINATION: On examination, temperature 98.9, pulse 100, respirations 16, blood pressure 114/68, pulse ox 95% on room. GENERAL APPEARANCE: Average build, lying in bed, not in distress. EYES: Pupils equal. Conjunctivae normal. HENT: External appearance of nose and ears normal. Oral cavity normal NECK: JVD not raised. Mass not palpable. RESPIRATORY: Effort normal. Mild wheezing. CARDIOVASCULAR: First and second sounds normal. No edema. ABDOMEN: Soft, nontender. Liver and spleen not palpable. LYMPHATIC: No lymph nodes palpable in neck or axillae. PSYCHIATRY: Alert and oriented x3. Mood and affect normal. NEUROLOGICAL: Pupils equal. Cranial nerves grossly intact. Power and sensation grossly intact. INVESTIGATIONS: White count 10.7, hemoglobin 17.7. Potassium 3.9. LDL 47. Chest x-ray shows no infiltrate, possibly some early hyperinflation. EKG normal sinus rhythm. ASSESSMENT: 1. Anterior chest wall pain in a patient with known coronary artery disease. Continues to smoke. Admitted with diagnosis of unstable angina with negative troponins and negative EKG. 2. Chronic nicotine dependence. Patient is an active cigarette smoker. 3. Early emphysema. PLAN: Home medications are resumed. Cardiac enzymes are done. Cardiology was consulted who ordered a stress test. Smoking cessation counseling was done with the patient including his clinical findings of early emphysema and that this may progress. Nicotine patch has been given. More than 3 minutes was spent on this aspect of the case. TONYA / GENNA: [id number] /
--- NOTE | 2018-01-12 18:40 | DS ---
DISCHARGE SUMMARY DATE OF ADMISSION: January 10, 2018. DATE OF DISCHARGE: January 11, 2018. FINAL DIAGNOSES: 1. Right anterior chest wall pain possibly musculoskeletal. 2. Coronary artery disease with prior history of stent. 3. Chronic nicotine dependence, patient an active cigarette smoker. 4. Early emphysema in a patient who is a smoker. HOSPITAL COURSE: This is a patient with known coronary artery disease and stent who has continued to smoke, presented with chest pain. The patient underwent Cardiolite nuclear stress test negative for ischemia. Okayed by Dr. Sellers to go home. Patient advised against smoking. EXAM: Lungs slightly decreased breath sounds. Cardiovascular 1st and 2nd sounds normal. DISCHARGE MEDICATIONS: 1. Lipitor 40 mg a day. 2. Aspirin 81 mg a day. 3. Ventolin HFA 1-2 puffs q.6h p.r.n. 4. Atrovent 2 puffs q.i.d. 5. Lopressor 12.5 b.i.d. 6. Nicotine patch 21. 7. Nitrostat 0.4 sublingual q.5 p.r.n. Follow with Dr. Amor in 2 weeks, follow Dr. Mcqueen in [address] Amor, copy to Dr. Mcqueen. MMODL / IJN: [id number] /
--- NOTE | 2018-01-14 13:14 | ECHOF ---
Referral Reason: MEASUREMENTS -------- HEIGHT: 180.3 cm WEIGHT: 90.3 kg BP: 106/68 RVIDd: 3.3 cm (< 3.3) IVSd: 1.2 cm (0.6 - 1.1) LVIDd: 4.5 cm (3.9 - 5.3) LVPWd: 1.2 cm (0.6 - 1.1) IVSs: 2.0 cm LVIDs: 2.9 cm LVPWs: 1.4 cm LA Diam: 3.7 cm (2.7 - 3.8) LAESV Index (A-L): 17.71 ml/m Ao Diam: 3.7 cm (2.0 - 3.7) AV Cusp: 2.0 cm (1.5 - 2.6) EPSS: 1.2 cm MV E Ozzy: 0.86 m/s MV DecT: 183 ms MV A Ozzy: 0.65 m/s MV E/A Ratio: 1.32 AV maxP.02 mmHg AV maxP.02 mmHg AV meanP.13 mmHg AR PHT: 528 ms MV EF SLOPE: 73.69 mm/s (70 - 150) MV EXCURSION: 1.68 cm (> 18.000) FINDINGS -------- Sinus rhythm. This was a technically excellent study. The left ventricular size is normal. There is borderline concentric left ventricular hypertrophy. Overall left ventricular systolic function is normal with, an EF between 60 - 65 %. The right ventricle is mildly enlarged. Normal LA size by volume 22+/-6 ml/m2. The right atrium is normal in size. The aortic valve is bicuspid. There is mild aortic valve sclerosis. There is mild aortic regurgit ation. The mitral valve is normal. The tricuspid valve appears structurally normal. There is no pulmonic regurgitation present. The aortic root is dilated measuring 3.7cm. There is no pericardial effusion. CONCLUSIONS -------- 1. Sinus rhythm. 2. This was a technically excellent study. 3. The left ventricular size is normal. 4. There is borderline concentric left ventricular hypertrophy. 5. Overall left ventricular systolic function is normal with, an EF between 60 - 65 %. 6. The right ventricle is mildly enlarged. 7. Normal LA size by volume 22+/-6 ml/m2. 8. The right atrium is normal in size. 9. The aortic valve is bicuspid. 10. There is mild aortic valve sclerosis. 11. The mitral valve is normal. 12. The tricuspid valve appears structurally normal. 13. There is no pulmonic regurgitation present. 14. The aortic root is dilated measuring 3.7cm. 15. There is no pericardial effusion. 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
--- NOTE | 2018-01-15 11:16 | EST ---
- Stress Test Note Stress Test Results/Findings: Exam Performed: NM stress cardiolite complete Exam Date: 01/11/18 Reason for Exam: Chest Pain Height: 5 ft 11 in Weight: 90.7 kg Protocol: Austin Cardiolite Stage: 3 Duration of Exercise: 9:31 Resting Heart Rate: 83 Resting Blood Pressure: 126/68 Maximum Achieved Heart Rate: 154 Maximum Achieved Blood Pressure: 223/54 85% PMHR: 145 100% PMHR: 170 METS: 11.1 Technologist Comment: Stress Test Results/Findings: This 52-year-old gentleman with history of coronary artery disease is admitted to the hospital with chest pain and shortness of breath. Enzymes and EKGs were negative. Baseline EKG showed sinus rhythm with some early repolarization changes. Blood pressure at rest is 124/68 with pulse rate of 83. Patient walked on the Austin protocol for for 9 minutes and 31 seconds achieving a maximum heart rate of 154 with a blood pressure 199/73. EKGs taken during and after the exercise did not reveal any changes to suggest ischemia. Final impression: #1. Negative stress test #2. Report on the nuclear images to begin by the radiologist #3. Patient's Exercise capacity is good. #4. Patient did not express any chest pain MTDD
== END 2018-01-11 14:33 | disposition home or self-care (01) ==
LOC: EC 17:33 → 3OBS 20:25
PROVIDERS: ADMIT Hospitalist; ATTEND Hospitalist
DX: R07.89 Other chest pain (principal); R06.02 Shortness of breath; M25.511 Pain in right shoulder; I25.10 Atherosclerotic heart disease of native coronary artery without angina pectoris; Z95.5 Presence of coronary angioplasty implant and graft; F17.210 Nicotine dependence, cigarettes, uncomplicated; J43.9 Emphysema, unspecified; I25.2 Old myocardial infarction; E78.5 Hyperlipidemia, unspecified; I10 Essential (primary) hypertension; M54.5 Low back pain; Z82.5 Family history of asthma and other chronic lower respiratory diseases; Z80.42 Family history of malignant neoplasm of prostate; J45.909 Unspecified asthma, uncomplicated; Z79.899 Other long term (current) drug therapy; Z79.82 Long term (current) use of aspirin
CPT/HCPCS: 36415; 71046; 78452; 80053; 80061; 82550; 82553; 83735; 84484; 85025; 85379; 85610; 85730; 87502; 93005; 93017; 93306; 96361; 96374; 96375; 99285

== ENCOUNTER → 2021-06-01 | Outpatient (CLI) | payer BC ==
--- NOTE | 2021-06-01 14:41 | CT ---
EXAMINATION TYPE: CT angio chest DATE OF EXAM: 06/01/2021 COMPARISON: None HISTORY: Thoracic aortic aneurysm. CT DLP: 752.4 mGycm CONTRAST: CTA thoracic aorta with 3-D reconstruction is performed and without and with IV Contrast, patient inj ected with 100ml mL of Isovue 370. Contrast CTA of the thoracic aorta was performed from the lung apex through the upper abdomen. 3D re construction imaging obtained at a separate workstation. CT Chest: THORACIC AORTA: No evidence for thoracic aortic aneurysm. Ascending thoracic aorta measures 3.7 cm. D escending thoracic aorta measures 2.2 cm. Mild atheromatous changes seen. There is no evidence for d issection or periaortic collection. LUNGS: The lungs are clear and free of infiltrate or atelectasis. No pulmonary nodule or mass is det ected. No pleural effusion or CT evidence of interstitial lung disease. MEDIASTINUM: No evidence for mediastinal hematoma. The heart is not enlarged. No evidence for med iastinal mass or adenopathy. HILAR STRUCTURES: No evidence for mass. No hilar adenopathy is appreciated. OTHER: No significant abnormality. IMPRESSION- No evidence for thoracic aortic aneurysm.
== END | disposition home or self-care (01) ==
LOC: RADCTMAIN 13:59
PROVIDERS: ATTEND Internal Medicine Clinical Cardiac Electrophysiology
DX: I71.2 Thoracic aortic aneurysm, without rupture (principal)
CPT/HCPCS: 71275; Q9967

== ENCOUNTER 2021-08-26 15:12 | Observation (INO) | payer BC ==
[2021-08-26] MEDS ORDERED: ASPIRIN 81 MG PO STA (15:59)
[2021-08-26] MEDS ORDERED: NITROGLYCERIN OINT 1 INCH/GM PACKET TOPICAL STA (15:59)
[2021-08-26] MEDS ORDERED: HEPARIN SODIUM 1,000 UN/ML (10ML VL) IV ONE (15:59)
[2021-08-26] MEDS ORDERED: HEPARIN SOD,PORK IN 0.45% NACL 25,000 UNIT in 0.45% NACL 1 250ML.BAG IV SCH (16:00)
[2021-08-26 16:17] LABS: Basophils % (A) 0 %; Eosinophils # (A) 0.2 k/uL (0-0.7); Eosinophils % (A) 2 %; HCT 48.6 % (39.0-53.0); HGB 16.8 gm/dL (13.0-17.5); Lymphocytes # (A) 1.8 k/uL (1.0-4.8); Lymphocytes % (A) 23 %; MCH 31.9 pg (25.0-35.0); MCHC 34.5 g/dL (31.0-37.0); MCV 92.5 fL (80.0-100.0); Mean Platelet Volume 7.5; Monocytes # (A) 0.4 k/uL (0-1.0); Monocytes % (A) 5 %; Neutrophils # (A) 5.2 k/uL (1.3-7.7); Neutrophils % (A) 68 %; Platelet Count 205 k/uL (150-450); RBC 5.26 m/uL (4.30-5.90); RDW 12.9 % (11.5-15.5); WBC 7.6 k/uL (3.8-10.6)
[2021-08-26 16:31] LABS: ALT 17 U/L (4-49); AST 26 U/L (17-59); African American GFR (CKD) >90 (>60 ml/min/1.73 sqM); Albumin 4.1 g/dL (3.5-5.0); Alkaline Phosphatase 106 U/L (38-126); Anion Gap 9 mmol/L; Blood Urea Nitrogen 11 mg/dL (9-20); Calcium 9.3 mg/dL (8.4-10.2); Carbon Dioxide 21 mmol/L (22-30); Chloride 106 mmol/L (98-107); Glucose 97 mg/dL (74-99); Lipase 47 U/L (23-300); Magnesium 2.2 mg/dL (1.6-2.3); Non-African American GFR(CKD) >90 (>60 ml/min/1.73 sqM); Potassium 4.1 mmol/L (3.5-5.1); Sodium 136 mmol/L (137-145); Total Bilirubin 0.9 mg/dL (0.2-1.3); Total Protein 6.8 g/dL (6.3-8.2)
--- NOTE | 2021-08-26 16:41 | XR ---
EXAMINATION TYPE: XR chest 2V DATE OF EXAM: 08/26/2021 COMPARISON: 01/10/2018 HISTORY: 56-year-old male with chest pain TECHNIQUE: PA and lateral views FINDINGS: Heart normal size. Aorta and vasculature within normal limits. Slightly increased interstitial densit y in the mid and lower lungs. No consolidation or pleural effusion. IMPRESSION: Slight increased interstitial density mid and lower lungs could reflect bronchitis or asthma.
[2021-08-26 16:55] LABS: INR 1.1 (<1.2)
[2021-08-26 16:56] LABS: Partial Thromboplastin Time 24.8 sec (22.0-30.0); Prothrombin Time 11.2 sec (9.0-12.0)
--- NOTE | 2021-08-26 18:33 | ED ---
Chest Pain HPI - General Chief Complaint: Chest Pain Stated Complaint: Chest Pain Time Seen by Provider: 08/26/21 15:39 Source: patient, RN notes reviewed Mode of arrival: ambulatory Limitations: no limitations - History of Present Illness Initial Comments: 56-year-old male presents with complaints of the onset of chest pain today states it was retrosternal 78/10 severity started around 11 AM today was intermittent and radiated to his neck. He states he did take a nitroglycerin initially without any response he took a second one and a Pfizer getting better. Upon arrival was 5 out of 10The wound is []. The wound was copiously irrigated with normal saline and Betadine. The wound was explored for foreign bodies and none were found. The wound was prepped and draped in the normal sterile fashion. The wound was anesthetized using []. The edges were reapproximated using []. Bleeding was well controlled and the patient tolerated the procedure well. MD Complaint: chest pain - Related Data Home Medications Medication Instructions Recorded Confirmed Aspirin [Adult Low Dose Aspirin EC] 81 mg PO DAILY 01/10/18 08/26/21 Metoprolol Tartrate [Lopressor] 12.5 mg PO DAILY 08/26/21 08/26/21 Metoprolol Tartrate [Lopressor] 25 mg PO HS 08/26/21 08/26/21 Previous Rx's Medication Instructions Recorded Atorvastatin [Lipitor] 40 mg PO DAILY #90 tab 12/07/14 Allergies Allergy/AdvReac Type Severity Reaction Status Date / Time No Known Allergies Allergy Verified 08/26/21 16:17 Review of Systems ROS Statement: Those systems with pertinent positive or pertinent negative responses have been documented in the HPI. ROS Other: All systems not noted in ROS Statement are negative. EKG Findings - EKG Results: EKG: interpreted by KALA ARREAGA, sinus rhythm, normal axis, normal QRS, normal ST/T, no acute changes ([place] sinus rhythm rate 72. Interval 162 QRS 86 QT since QTC 380/[address]-T wave changes) Past Medical History Past Medical History: Asthma, Coronary Artery Disease (CAD), GI Bleed, Myocardial Infarction ([place]) Additional Past Medical History / Comment(s): Pt states he does not have HTN or elevated cholesterol-he is these type medications d/t his cardiac stent, he has low back pain. Last Myocardial Infarction Date:: 2014 History of Any Multi-Drug Resistant Organisms: None Reported Past Surgical History: Heart Catheterization With Stent, Hernia Repair Additional Past Surgical History / Comment(s): 12/20/16 colonoscopy, L inguinal hernia repair, inguinal hernia repair as a child too. Past Anesthesia/Blood Transfusion Reactions: No Reported Reaction Date of Last Stent Placement:: 2014 Past Psychological History: No Psychological Hx Reported Smoking Status: Current every day smoker Past Alcohol Use History: Rare Past Drug Use History: None Reported - Past Family History Mother Family Medical History: COPD Additional Family Medical History / Comment(s): Mother is . Father Family Medical History: AICD/Pacemaker, Congestive Heart Failure (CHF), Myocardial Infarction ([place]) Additional Family Medical History / Comment(s): Prostate CA, father had 1st of 3 MIs at the age of 61 yrs. General Exam - General Exam Comments Initial Comments: This is a well-developed well-nourished awake alert oriented 3 male Limitations: no limitations General appearance: alert, in no apparent distress Head exam: Present: atraumatic, normocephalic, normal inspection Eye exam: Present: normal appearance, PERRL, EOMI. Absent: scleral icterus, con junctival injection, periorbital swelling ENT exam: Present: normal exam, mucous membranes moist Neck exam: Present: normal inspection, full ROM, other (Those have JVD or bruits). Absent: tenderness, meningismus, lymphadenopathy Respiratory exam: Present: normal lung sounds bilaterally. Absent: respiratory distress, wheezes, rales, rhonchi, stridor Cardiovascular Exam: Present: regular rate, normal rhythm, normal heart sounds. Absent: systolic murmur, diastolic murmur, rubs, gallop, clicks GI/Abdominal exam: Present: soft, normal bowel sounds. Absent: distended, tenderness, guarding, rebound, rigid Extremities exam: Present: normal inspection, full ROM, normal capillary refill. Absent: tenderness, pedal edema, joint swelling, calf tenderness Back exam: Present: normal inspection Neurological exam: Present: alert, oriented X3, CN II-XII intact Psychiatric exam: Present: normal affect, normal mood Skin exam: Present: warm, dry, intact, normal color. Absent: rash Course Vital Signs 08/26/21 08/26/21 08/26/21 15:20 17:00 18:00 Temperature 97.4 F L Pulse Rate 89 59 L 61 Respiratory 18 18 18 Rate Blood Pressure 136/83 135/84 121/81 O2 Sat by Pulse 95 Oximetry - Reevaluation(s) Reevaluation #1: 08/26/21 18:33 Reevaluation patient finds that he is pain-free at this time Chest Pain MDM - MDM Imaging reviewed no acute findings I did discuss findings the patient's girlfriend were present patient will be admitted for inpatient evaluation treatment by cardiology and presentation is consistent with unstable angina. Critical Care Time Critical Care Time: Yes Total Critical Care Time: 31 Critical Care Time: Temporal does present with history physical labs x-rays reevaluation and take patient on multiple occasions review old charting discussed with patient regarding findings admission orders documentation above and discussed with the admitting physician Disposition Clinical Impression: Unstable angina pectoris, Chest pain Disposition: ADMITTED IP TO THIS [facility] Condition: Fair Referrals: Kieran Mcqueen MD [Primary Care Provider] - 1-2 days
[2021-08-26] MEDS ORDERED: HYDROmorphone 1 MG/ML 1 ML SYRINGE IVP PRN (18:36)
[2021-08-26] MEDS ORDERED: NITROGLYCERIN SL TABS 0.4 MG TAB SUBLINGUAL PRN (18:38)
[2021-08-26] MEDS ORDERED: NICOTINE 21MG/24HR PATCH TRANSDERM STA (19:18)
[2021-08-26] MEDS ORDERED: METOPROLOL TARTRATE 25 MG TAB PO SCH (21:00)
[2021-08-27] MEDS: NITROGLYCERIN OINT 1 INCH/GM PACKET TOPICAL SCH ×3 (00:30→11:50)
[2021-08-27 02:49] VITALS: RESP 16
[2021-08-27] MEDS ORDERED: NICOTINE 21MG/24HR PATCH TRANSDERM SCH (09:00)
[2021-08-27] MEDS ORDERED: ATORVASTATIN 40 MG TAB PO SCH (09:00)
[2021-08-27] MEDS ORDERED: ASPIRIN 325 MG TAB PO SCH (09:00)
[2021-08-27] MEDS ORDERED: METOPROLOL TARTRATE 12.5 MG TAB PO SCH (09:00)
[2021-08-27 09:40] LABS: Chol/HDL Ratio 3.03 Ratio; HDL Cholesterol 36.6 mg/dL (40.00-60.00); LDL Cholesterol,Calculated 46.8 mg/dL (0.0-131.0); VLDL Calculation 27.6 mg/dL (5.00-40.00)
--- NOTE | 2021-08-27 10:21 | P.CRDCN ---
History of Present Illness Consult date: 08/27/21 Chief complaint: Chest discomfort History of present illness: This is a very pleasant 56-year-old gentleman with a past medical history significant for coronary artery disease and prior stenting of the RCA in 2014 as well as significant history of smoking presented to the hospital complaining of chest discomfort. He was in his usual state of [place] yesterday when he was at work and started experiencing discomfort in the chest he stated after he had a cough. The discomfort is in the middle of the chest as well as right side of the chest as a sharp kind of discomfort did not radiate to his arms or neck or shoulders or back and was not associated with any other symptoms of shortness of breath or sweating or dizziness or lightheadedness or presyncope or syncope. It lasted for about 10-15 minutes. He decided to come to the emergency department he stated clearly that the chest discomfort is completely different from what he had before he underwent a stenting back in 2014. He underwent a cardiac workup which came in to be unremarkable including EKG showing sinus rhythm without any ST or T-wave abnormalities and 3 sets of cardiac enzymes came in to be unremarkable. Also the chest x-ray came in to be unremarkable. The patient w ould like to go home. He stated that he underwent a stress test in January 2021 and he was told that the stress test was unremarkable. Past Medical History Past Medical History: Asthma, Coronary Artery Disease (CAD), GI Bleed, Myocardial Infarction ([place]) Additional Past Medical History / Comment(s): Pt states he does not have HTN or elevated cholesterol-he is these type medications d/t his cardiac stent, he has low back pain. Last Myocardial Infarction Date:: 2014 History of Any Multi-Drug Resistant Organisms: None Reported Past Surgical History: Heart Catheterization With Stent, Hernia Repair Additional Past Surgical History / Comment(s): 12/20/16 colonoscopy, L inguinal hernia repair, inguinal hernia repair as a child too. Past Anesthesia/Blood Transfusion Reactions: No Reported Reaction Date of Last Stent Placement:: 2014 Past Psychological History: No Psychological Hx Reported Additional Psychological History / Comment(s): Pt resides with his significant other. He is independent. 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 Smoking Status: Current every day smoker Past Alcohol Use History: Rare Past Drug Use History: None Reported - Past Family History Mother Family Medical History: COPD Additional Family Medical History / Comment(s): Mother is . Father Family Medical History: AICD/Pacemaker, Congestive Heart Failure (CHF), Myocardial Infarction ([place]) Additional Family Medical History / Comment(s): Prostate CA, father had 1st of 3 MIs at the age of 61 yrs. Medications and Allergies Home Medications Medication Instructions Recorded Confirmed Type Atorvastatin [Lipitor] 40 mg PO DAILY #90 tab 12/07/14 08/26/21 Rx Aspirin [Adult Low Dose Aspirin EC] 81 mg PO DAILY 01/10/18 08/26/21 History Metoprolol Tartrate [Lopressor] 12.5 mg PO DAILY 08/26/21 08/26/21 History Metoprolol Tartrate [Lopressor] 25 mg PO HS 08/26/21 08/26/21 History Allergies Allergy/AdvReac Type Severity Reaction Status Date / Time No Known Allergies Allergy Verified 08/26/21 16:17 Physical Exam Vitals: Vital Signs Temp Pulse Pulse Resp BP BP BP 08/27/21 08:00 58 L 16 08/27/21 07:00 97.8 F 61 16 106/61 08/27/21 02:00 97.4 F L 58 L 16 94/48 08/26/21 21:02 97.7 F 69 18 116/74 08/26/21 20:40 98 F 71 20 132/82 08/26/21 20:00 18 08/26/21 18:00 61 18 121/81 08/26/21 17:00 59 L 18 135/84 08/26/21 15:20 97.4 F L 89 18 136/83 Pulse Ox 08/27/21 08:00 08/27/21 07:00 95 08/27/21 02:00 93 L 08/26/21 21:02 96 08/26/21 20:40 97 08/26/21 20:00 08/26/21 18:00 08/26/21 17:00 08/26/21 15:20 95 Intake and Output 08/26/21 08/27/21 08/27/21 22:59 06:59 14:59 Intake Total 75.5 Balance 75.5 Intake: Intake, IV Titration 75.5 Amount Heparin Sod,Pork in 0.45% 75.5 NaCl 25,000 unit In 0.45 % NaCl 1 250ml.bag @ 11. 023 UNITS/KG/HR 10 mls/hr IV .Q24H [facility] Rx#: [id number] Other: Voiding Method Toilet Toilet Toilet Urinal Urinal Urinal # Voids 1 2 Weight 90.718 kg - Constitutional General appearance: no acute distress - Respiratory Respiratory: bilateral: CTA - Cardiovascular Rhythm: regular Heart sounds: normal: S1, S2 Results 08/26/21 16:04 08/26/21 16:04 Cardiac Enzymes 08/26/21 08/26/21 08/26/21 Range/Units 16:04 16:04 19:17 AST 26 (17-59) U/L Troponin I <0.012 <0.012 (0.000-0.034) ng/mL 08/26/21 Range/Units 22:59 AST (17-59) U/L Troponin I <0.012 (0.000-0.034) ng/mL Coagulation 08/26/21 08/27/21 Range/Units 16:04 00:56 PT 11.2 (9.0-12.0) sec APTT 24.8 44.1 H (22.0-30.0) sec Lipids 08/27/21 Range/Units 05:34 Triglycerides 138.00 (0.00-149.00) mg/dL Cholesterol 111.00 (0.00-200.00) mg/dL HDL Cholesterol 36.60 L (40.00-60.00) mg/dL Cholesterol/HDL Ratio 3.03 Ratio CBC 08/26/21 Range/Units 16:04 WBC 7.6 (3.8-10.6) k/uL RBC 5.26 (4.30-5.90) m/uL Hgb 16.8 (13.0-17.5) gm/dL Hct 48.6 (39.0-53.0) % Plt Count 205 (150-450) k/uL Comprehensive Metabolic Panel 08/26/21 Range/Units 16:04 Sodium 136 L (137-145) mmol/L Potassium 4.1 (3.5-5.1) mmol/L Chloride 106 (98-107) mmol/L Carbon Dioxide 21 L (22-30) mmol/L BUN 11 (9-20) mg/dL Creatinine 0.71 (0.66-1.25) mg/dL Glucose 97 (74-99) mg/dL Calcium 9.3 (8.4-10.2) mg/dL AST 26 (17-59) U/L ALT 17 (4-49) U/L Alkaline Phosphatase 106 (38-126) U/L Total Protein 6.8 (6.3-8.2) g/dL Albumin 4.1 (3.5-5.0) g/dL Current Medications Generic Name Dose Route Start Last Admin Trade Name Freq PRN Reason Stop Dose Admin Aspirin 325 mg 08/27/21 09:00 08/27/21 08:00 Aspirin 325 Mg Tab PO 325 mg DAILY VIKI Administration Atorvastatin Calcium 40 mg 08/27/21 09:00 08/27/21 08:00 Atorvastatin 40 Mg Tab PO 40 mg DAILY [facility] Administration Hydromorphone HCl 1 mg 08/26/21 18:36 Hydromorphone 1 Mg/Ml 1 Ml Syringe IVP Q3HR PRN Pain Heparin Sodium/Sodium Chloride 250 mls @ 10 mls/hr 08/26/21 16:00 08/27/21 01:52 25,000 unit/ Sodium Chloride IV 11.023 units/kg/hr .Q24H VIKI 10 mls/hr Titration Protocol 11.023 UNITS/KG/HR Metoprolol Tartrate 25 mg 08/26/21 21:00 08/26/21 22:27 Metoprolol Tartrate 25 Mg Tab PO Not Given HS VIKI Metoprolol Tartrate 12.5 mg 08/27/21 09:00 08/26/21 20:18 Metoprolol Tartrate 12.5 Mg Tab PO 12.5 mg DAILY VIKI Administration Nicotine 1 patch 08/27/21 09:00 08/27/21 08:00 Nicotine 21mg/24hr Patch TRANSDERM 1 patch DAILY [facility] Administration Nitroglycerin 0.4 mg 08/26/21 18:38 Nitroglycerin Sl Tabs 0.4 Mg Tab SUBLINGUAL Q5M PRN Chest Pain Nitroglycerin 1 inch 08/27/21 00:00 08/27/21 05:23 Nitroglycerin Oint 1 Inch/Gm Packet TOPICAL Not Given Q6HR VIKI Intake and Output 08/26/21 08/27/21 08/27/21 22:59 06:59 14:59 Intake Total 75.5 Balance 75.5 Intake: Intake, IV Titration 75.5 Amount Heparin Sod,Pork in 0.45% 75.5 NaCl 25,000 unit In 0.45 % NaCl 1 250ml.bag @ 11. 023 UNITS/KG/HR 10 mls/hr IV .Q24H [facility] Rx#: [id number] Other: Voiding Method Toilet Toilet Toilet Urinal Urinal Urinal # Voids 1 2 Weight 90.718 kg 08/26/21 16:04 08/26/21 16:04 Assessment and Plan Assessment: Assessment #1 noncardiac chest discomfort #2 coronary artery disease and prior stenting of the RCA in 2014 #3 smoking Plan #1 acute coronary event was ruled out #2 the patient remains asymptomatic during his hospital stay #3 smoking cessation was discussed with him #4 he would like to go home and see his insurance claims adjuster as an outpatient. #5 I advised to get the patient up and around and he is asymptomatic he then can be discharged home. He was advised to come if he develop any more episodes of chest discomfort
--- NOTE | 2021-08-27 15:42 | P.HPIM ---
History of Present Illness Please consider this note as combined H&P and discharge summary Hospital course This is a pleasant 56 years old male with past medical history of Asthma, Coronary Artery Disease (CAD), GI Bleed, chronic low back pain. He is every day smoker Patient presents because of chest pressure of 1 hour. He has history of coronary artery disease with stent placement Patient denies any dyspnea or coughing. No chest pain now. No diarrhea. No urinary complaints. No fever. Vital signs stable, blood pressure is low normal which is baseline Labs reviewed including CBC, INR, BMP, liver enzymes, serial troponins are unremarkable. Lipase is negative. Covert is negative Chest x-ray: Slight increased interstitial density mid and lower lungs could reflect bronchitis or asthma Diagnoses Chest pain, cardiac causes ruled out by tearoom host/hostess. completely resolved Mild bronchitis could be related to his smoking habits, with mild bronchospasm. History of asthma History of coronary artery disease status post stent Chronic back pain History of GI bleed Review of systems CONSTITUTIONAL: No fever, no malaise, no fatigue. HEENT: No recent visual problems or hearing problems. Denied any sore throat. CARDIOVASCULAR: No orthopnea, PND, no palpitations, no syncope. PULMONARY: No shortness of breath, no cough, no hemoptysis. GASTROINTESTINAL: No diarrhea, no nausea, no vomiting, no abdominal pain. Normoactive bowel sounds. NEUROLOGICAL: No headaches, no weakness, no numbness. HEMATOLOGICAL: Denies any bleeding or petechiae. GENITOURINARY: Denies any burning micturition, frequency, or urgency. MUSCULOSKELETAL/RHEUMATOLOGICAL: Denies any joint pain, swelling, or any muscle pain. ENDOCRINE: Denies any polyuria or polydipsia. Physical exam GENERAL: The patient is alert and oriented x3, not in any acute distress. Well developed, well nourished. HEENT: Pupils are round and equally reacting to light. EOMI. No scleral icterus. No conjunctival pallor. Normocephalic, atraumatic. No pharyngeal erythema. No thyromegaly. CARDIOVASCULAR: S1 and S2 present. No murmurs, rubs, or gallops. -PULMONARY: Chest is clear to auscultation, no wheezing or crackles. Mild prolonged expiration with no overt wheezing ABDOMEN: Soft, nontender, nondistended, normoactive bowel sounds. No palpable organomegaly. MUSCULOSKELETAL: No joint swelling or deformity. EXTREMITIES: No cyanosis, clubbing, or pedal edema. NEUROLOGICAL: Gross neurological examination did not reveal any focal deficits. SKIN: No rashes. No petechiae Plan This is a pleasant 56 years old male who presents with chest pressure which is currently resolved. Cardiology cleared the patient and himself patient was ready to go home today. Patient is cleared by cardiology for discharge and patient can be discharged home today and follow-up as an outpatient We'll discharge him on inhaler, both albuterol when necessary and Symbicort for a few days. Smoking cessation counseling was provided, he agrees. He states he has nicotine patch. Patient informed if he got worse to come to emergency room and he agrees. Patient currently is medically stable. Patient is as symptomatic back to baseline and really wants to go home now Problems and management plan were discussed with the patient and he verbalized understanding and acceptance Patient was found stable and can be discharged home however he needs follow-up as an outpatient. Patient was instructed to follow up with PCP Dr. Mcqueen within one week and patient agrees. Also recommended to repeat chest x-ray with his PCP and he agrees Patient instructed to follow up with tearoom host/hostess Dr. Garcia in 2 weeks Past Medical History Past Medical History: Asthma, Coronary Artery Disease (CAD), GI Bleed, Myocardial Infarction ([place]) Additional Past Medical History / Comment(s): Pt states he does not have HTN or elevated cholesterol-he is these type medications d/t his cardiac stent, he has low back pain. Last Myocardial Infarction Date:: 2014 History of Any Multi-Drug Resistant Organisms: None Reported Past Surgical History: Heart Catheterization With Stent, Hernia Repair Additional Past Surgical History / Comment(s): 12/20/16 colonoscopy, L inguinal hernia repair, inguinal hernia repair as a child too. Past Anesthesia/Blood Transfusion Reactions: No Reported Reaction Date of Last Stent Placement:: 2014 Past Psychological History: No Psychological Hx Reported Additional Psychological History / Comment(s): Pt resides with his significant other. He is independent. 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 Smoking Status: Current every day smoker Past Alcohol Use History: Rare Past Drug Use History: None Reported - Past Family History Mother Family Medical History: COPD Additional Family Medical History / Comment(s): Mother is . Father Family Medical History: AICD/Pacemaker, Congestive Heart Failure (CHF), Myocardial Infarction ([place]) Additional Family Medical History / Comment(s): Prostate CA, father had 1st of 3 MIs at the age of 61 yrs. Medications and Allergies Home Medications Medication Instructions Recorded Confirmed Type Atorvastatin [Lipitor] 40 mg PO DAILY #90 tab 12/07/14 08/26/21 Rx Aspirin [Adult Low Dose Aspirin EC] 81 mg PO DAILY 01/10/18 08/26/21 History Metoprolol Tartrate [Lopressor] 12.5 mg PO DAILY 08/26/21 08/26/21 History Metoprolol Tartrate [Lopressor] 25 mg PO HS 08/26/21 08/26/21 History Allergies Allergy/AdvReac Type Severity Reaction Status Date / Time No Known Allergies Allergy Verified 08/26/21 16:17 Physical Exam Vitals: Vital Signs Temp Pulse Pulse Resp BP BP BP 08/27/21 08:00 58 L 16 08/27/21 07:00 97.8 F 61 16 106/61 08/27/21 02:00 97.4 F L 58 L 16 94/48 08/26/21 21:02 97.7 F 69 18 116/74 08/26/21 20:40 98 F 71 20 132/82 08/26/21 20:00 18 08/26/21 18:00 61 18 121/81 08/26/21 17:00 59 L 18 135/84 Pulse Ox 08/27/21 08:00 08/27/21 07:00 95 08/27/21 02:00 93 L 08/26/21 21:02 96 08/26/21 20:40 97 08/26/21 20:00 08/26/21 18:00 08/26/21 17:00 Intake and Output 08/27/21 08/27/21 08/27/21 06:59 14:59 22:59 Intake Total 75.5 84.833 Balance 75.5 84.833 Intake: Intake, IV Titration 75.5 84.833 Amount Heparin Sod,Pork in 0.45% 75.5 84.833 NaCl 25,000 unit In 0.45 % NaCl 1 250ml.bag @ 11. 023 UNITS/KG/HR 10 mls/hr IV .Q24H [facility] Rx#: [id number] Other: Voiding Method Toilet Toilet Urinal Urinal # Voids 2 Results CBC & Chem 7: 08/26/21 16:04 08/26/21 16:04 Labs: Abnormal Lab Results - Last 24 Hours (Table) 08/26/21 08/27/21 08/27/21 Range/Units 16:04 00:56 05:34 APTT 44.1 H (22.0-30.0) sec Sodium 136 L (137-145) mmol/L Carbon Dioxide 21 L (22-30) mmol/L HDL Cholesterol 36.60 L (40.00-60.00) mg/dL Thrombosis Risk Factor Assmnt - Choose All That Apply Any of the Below Risk Factors Present?: Yes Each Factor Represents 1 point: Age 41-60 years, Obesity (BMI >25) Other Risk Factors: No Other congenital or acquired thrombophilia - If yes, enter type in comment: No Thrombosis Risk Factor Assessment Total Risk Factor Score: 2 Thrombosis Risk Factor Assessment Level: Low Risk
[2021-08-27 16:14] VITALS: BP 124/77; PULSE 67; TEMP 98.3
== END 2021-08-27 16:00 | disposition home or self-care (01) ==
LOC: EC 15:12 → 6NMEDSUR 18:38
PROVIDERS: ADMIT Internal Medicine; ATTEND Internal Medicine
DX: R07.2 Precordial pain (principal); J40 Bronchitis, not specified as acute or chronic; J98.01 Acute bronchospasm; F17.200 Nicotine dependence, unspecified, uncomplicated; J45.909 Unspecified asthma, uncomplicated; I25.110 Atherosclerotic heart disease of native coronary artery with unstable angina pectoris; Z20.822 Contact with and (suspected) exposure to COVID-19; G89.29 Other chronic pain; M54.50 Low back pain, unspecified; I25.2 Old myocardial infarction; E66.9 Obesity, unspecified; Z68.28 Body mass index [BMI] 28.0-28.9, adult; Z71.6 Tobacco abuse counseling; Z79.899 Other long term (current) drug therapy; Z79.82 Long term (current) use of aspirin; Z95.5 Presence of coronary angioplasty implant and graft; Z87.19 Personal history of other diseases of the digestive system; Z82.49 Family history of ischemic heart disease and other diseases of the circulatory system; Z82.5 Family history of asthma and other chronic lower respiratory diseases; Z80.42 Family history of malignant neoplasm of prostate
CPT/HCPCS: 96366 ×3; 96365; 96375; 99291; 36415; 93005; 83880; 80061; 80053; 83690; 83735; 84484; 85025; 85610; 85730 ×2; 87635; 71046; G0378 ×2; S4990 ×2; J1644 ×2

== ENCOUNTER → 2022-03-08 | Outpatient (CLI) | payer BC ==
--- NOTE | 2022-03-08 19:32 | CONS ---
CONSULTATION DATE OF SERVICE: 03/08/2022 This 56-year-old gentleman has been evaluated in [facility] for possible obstructive sleep apnea-hypopnea syndrome. HISTORY OF PRESENT ILLNESS/SLEEP-WAKE EVALUATION: Patient's usual sleep schedule is from 8:30 p.m. to 5 a.m. on weekdays and from 10 p.m. to 6 a.m. on weekends. Sometimes he has problems with falling asleep. He has a TV set in the bedroom. He sleeps in different position. He snores and wakes up from sleep with nocturia. Positive history of episodes of stopped breathing during sleep. No history of hypnagogic hallucinations, sleep paralysis or cataplexy. During the day, the patient feels sleepiness, falling asleep. [place] Sleepiness Scale is 6. He may take one nap, usually around 1p.m. No vivid dream during naps. PAST MEDICAL HISTORY: Positive for coronary artery disease with history of heart attack 7 years ago and in December of 2021. Hyperlipidemia. PAST SURGICAL HISTORY: Stent insertion to coronary arteries, hernia repair. MEDICATIONS: 1. Atorvastatin 80 mg once a day. 2. Metoprolol 25 mg twice a day. 3. Aspirin 81 mg once a day. 4. Bupropion 150 mg once a day. 5. Clopidogrel 10 mg once a day. SOCIAL HISTORY: Positive for smoking about half pack a day for 30 years; recently quit. Alcohol consumption occasional. FAMILY HISTORY: Heart problems, sinus problems, diabetes, emphysema, cancer. REVIEW OF SYSTEMS: Tiredness and sleepiness during the day. No fevers. No double vision. No recent chest pain. No shortness of breath. No abdominal pain. No bleeding episodes. No blood in the urine. No seizure episodes. PHYSICAL EXAMINATION: GENERAL: Pleasant gentleman without distress. VITAL SIGNS: BP 122/77, HR 60, RR 16, height 5 feet 10 inches, weight 196.4 pounds, body mass index 28.1, temperature 97.0, oxygen saturation at room air 95%. HEENT: PERRLA, EOMI, evaluation of oropharynx showed tongue protrudes midline. Low position of soft palate; Mallampati III to IV. NECK: Supple, no JVD. Thyroid is not palpable. Neck is wide; 17 inches in circumference. LUNGS: Clear to percussion and to auscultation. Good air exchange. No wheezing or rhonchi. HEART: S1, S2 regular. No murmurs, gallops, or rubs. ABDOMEN: Soft and nontender. Bowel sounds are present. No organomegaly appreciated. EXTREMITIES: No clubbing or cyanosis. REFUSE COLLECTOR: Awake, alert, and oriented X3. Cranial nerves 2 to 7 intact. There is no fasciculation or atrophy. noted. No focal deficits observed. IMPRESSION: 1. Snoring, awakenings from sleep with nocturia, extremely low position of soft palate, Mallampati IV, wide neck, 17 inches in circumference; obstructive sleep apnea-hypopnea syndrome. 2. Coronary artery disease, status post myocardial infarction about 7 years ago and in December of 2021, status post stent insertion. 3. Status post hernia repair. 4. Hyperlipidemia. PLAN: 1. Polysomnography for evaluation of patient's breathing during sleep. 2. CPAP/BiPAP titration if sleep study confirms obstructive sleep apnea-hypopnea syndrome. 3. Preferable position during sleep on the side. 4. No driving if patient feels any sleepiness. 5. I will see patient for follow up visit to explain results of testing and following plan. Thank you very much for referring this patient for consultation. Sincerely, Gallito Howard MD, PhD, FAASM Diplomat of [place] [employer] Sleep Medicine Board of [place] [employer] [facility] [employer] TONYA / GENNA: [id number] /
== END ==
LOC: SLEEP 14:04
PROVIDERS: ATTEND Internal Medicine
DX: G47.33 Obstructive sleep apnea (adult) (pediatric) (principal); I25.10 Atherosclerotic heart disease of native coronary artery without angina pectoris; I25.2 Old myocardial infarction; Z95.5 Presence of coronary angioplasty implant and graft; Z98.890 Other specified postprocedural states; E78.5 Hyperlipidemia, unspecified; Z87.891 Personal history of nicotine dependence
CPT/HCPCS: 99211